=== PATIENT | female | born 1940 | race Caucasian/White ===

== ENCOUNTER 2019-05-22 10:39 | Observation (INO) ==
[2019-05-22 11:28] LABS: Basophils # 0.1 K/mcL (0.0-0.2); Basophils % 0.4 %; Eosinophils # 0.3 K/mcL (0.0-0.6); Eosinophils % 1.2 %; Hematocrit 30.2 % (35.3-44.9); Hemoglobin 9.1 g/dL (11.5-15.4); Immature Granulocytes % 1.7 % (0-4); Lymphocytes # 1.3 K/mcL (0.6-4.6); Lymphocytes % 5.8 %; Mean Corpuscular HGB Conc 30.1 g/dL (31.6-35.5); Mean Corpuscular Hemoglobin 25.9 pg (28.0-33.3); Mean Corpuscular Volume 85.8 fL (83.0-100.0); Mean Platelet Volume 9.1 fL (9.4-12.4); Monocytes # 1.9 K/mcL (0.0-1.3); Monocytes % 8.2 %; Platelet Count 548 K/mcL (140-400); Red Blood Count 3.52 M/mcL (3.82-4.97); Red Cell Distribution Width 20.1 % (11.5-14.5); Segmented Neutrophils % 82.7 %; White Blood Count 22.9 K/mcL (4.3-11.1)
[2019-05-22] MEDS ORDERED: Isovue-370 500 ML BOTTLE IVP ONE ×2 (11:31→16:52)
[2019-05-22 11:44] LABS: BUN/Creatinine Ratio 16 (6-26); Blood Urea Nitrogen 11 mg/dL (8-23); Calcium 9.9 mg/dL (8.6-10.3); Carbon Dioxide 25 mEq/L (23-29); Chloride 96 mEq/L (98-107); Glucose 256 mg/dL (70-105); Osmolality,Calculated 276 (280-300); Potassium 4.1 mEq/L (3.5-5.1); Sodium 129 mEq/L (136-145); eGFR For African Americans > 60 (> 60); eGFR For Non-African Americans > 60 (> 60)
[2019-05-22 11:50] LABS: Troponin I 0.29 ng/mL (< 0.04)
--- NOTE | 2019-05-22 11:51 | Emergency Department Note ---
Disposition Clinical Impression: Hypoxia, Lung mass Community acquired pneumonia Qualifiers: Laterality: unspecified laterality Qualified Code(s): J18.9 - Pneumonia, un specified organism Disposition: Admitted As Inpatient Condition: Fair Referrals: Ashutosh Burton DO [Primary Care Provider] - Forms: ED Satisfaction Letter Time of Disposition: 14:43 General Adult HPI - General Chief complaint: ED Shortness of Breath/Dyspnea Stated complaint: R/O PE Time Seen by Provider: 05/22/19 11:00 Source: patient, family Mode of arrival: private vehicle Limitations: no limitations Nursing Notes Reviewed: Yes Vital Signs Reviewed: Yes - History of Present Illness HPI Narrative: 79-year-old female with a past medical history of breast cancer treated with radiation and lumpectomy over 20 years ago with subsequent double mastectomy earlier this year. Patient was seen at the cancer Center this morning and they were concerned for a blood clot in her lungs so they sent her here for further evaluation. Patient states that she is short of breath right now and has been that way for the last 3 weeks. Patient at the bedside reports that patient has been more wheezy when she coughs over the last several days. She denies fevers or chills. She denies sputum with her cough. She states that she is short of breath with exertion. Pain Scale: 0 - Related Data Home Medications Medication Instructions Recorded Confirmed Calcium Carbonate [Tums] 1,000 mg PO QID PRN 05/16/15 03/20/19 Cholecalciferol (Vitamin D3) 200 unit PO DAILY 05/16/15 03/20/19 [Vitamin D] Aspirin Enteric Coated [Aspirin EC] 81 mg PO DAILY 02/19/17 03/20/19 Amlodipine Besylate 5 mg PO QAM 01/27/19 03/20/19 Ferrous Sulfate [Iron] 325 mg PO DAILY 02/24/19 03/20/19 Previous Rx's Medication Instructions Recorded Ascorbate Calcium [Vitamin C] 1 tab PO DAILY #30 tablet 07/08/18 Allergies Allergy/AdvReac Type Severity Reaction Status Date / Time No Known Allergies Allergy Verified 05/22/19 10:41 Review of Systems: In addition to that documented in the HPI above, the additional ROS was obtained: Constitutional: Denies fevers or chills Eyes: Denies vision changes ENMT: Denies sore throat CV: Denies chest pain Resp: Reports exertional SOB GI: Denies vomiting or diarrhea : Denies painful urination MSK: Denies recent trauma Skin: Denies new rashes Neuro: Denies new numbness or tingling or weakness Past Medical History - Past Medical History Attestation: Yes The following information was validated with the patient. Medical history: Reports: non-contributory, cancer, coronary artery disease, hyperlipidemia, hypertension, osteoporosis, other Surgical history: Reports: angioplasty/stent, breast surgery, other Psychiatric history: Reports: no psych history - Social History Smoking Status: Former smoker Smokeless Tobacco Status: No Alcohol use: Reports: occasionally Drug use: Reports: none Physical Exam General: A&O x 3. No acute distress. Well developed, well nourished. Head: atraumatic, normocephalic. ENT: No conjunctival injection, no scleral icterus. PERRLA. EOMI. Oropharynx non- erythematous. mucous membranes moist. Neuro: No focal deficits, no speech deficit, no facial droop, mentating well. Pulm: Mild, inconsistent expiratory wheeze noted diffusely that partially clears with coughing. Decreased lung sounds on RLL. Cardio: RRR no m/r/g. Chest not tender to palpation. Abd: Soft, non-distended. Normoactive bowel sounds. Non-tender to palpation. No guarding. Non rigid. Extremities: Radial pulses 2+ gilberto, dorsalis pedis/posterior tibialis 2+ gilberto. No LE edema. No cyanosis, clubbing. Skin: warm, dry, intact. No rashes. Psych: Appropriate mood and affect. Answers questions appropriately. Cooperative with exam. - General Limitations: no limitations General appearance: alert, in no apparent distress Course - Consultations Consultation #1: Troponin 0.29 critical lab value called from lab Time: 11:50 Vital Signs Temperature 98.5 F 05/22/19 10:41 Pulse Rate 95 05/22/19 10:41 Respiratory Rate 22 05/22/19 10:41 Blood Pressure 108/73 05/22/19 10:41 O2 Sat by Pulse Oximetry 98 05/22/19 10:41 Temperature 98.2 F 05/22/19 13:31 Pulse Rate 87 05/22/19 13:31 Respiratory Rate 18 05/22/19 13:31 Blood Pressure 122/59 05/22/19 13:31 O2 Sat by Pulse Oximetry 99 05/22/19 11:30 Oxygen Delivery Oxygen Delivery Room Air Medical Decision Making - MDM Narrative Medical decision making narrative: 79-year-old female with past medical history of breast cancer treated with a combination of radiation and lumpectomy 20 years ago, as well as mastectomy bilateral earlier this year. Patient was seen at her oncologist this morning who sent her over here for concern of PE. We will obtain CTA. We will also obtain basic laboratory evaluation. Disposition pending, suspect admission. 1444: Pts CTA did not demonstration pulmonary embolus, however, it did demonstrate significant lung mass in her Right lung, left lung, and adrenal gland concerning for metastatic disease. Pt was informed of the concern for cancer, although assured that this cannot be diagnosed without a biopsy. Pt was admitted to hospitalist, Dr. Capellan, who agreed to accept the patient to his service. Iain Ley NP from Oncology was consulted who states that Dr. Asencio will see the patient in the AM. Results of the workup including any imaging and/or labwork was shared with the patient at bedside. Patient was given an opportunity to ask questions at bedside and all of their concerns were addressed. Patient verbalized understanding and agreement with plan of care. Pt remained stable while in the department. - Medical Records Medical records reviewed: Yes I reviewed the patient's medical records. - Lab Data Lab results reviewed: Yes I reviewed the patient's lab results. Result diagrams: 05/22/19 11:08 05/22/19 11:08 Lab Results 05/22/19 05/22/19 05/22/19 Range/Units 11:08 11:08 11:08 WBC 22.9 H (4.3-11.1) K/mcL RBC 3.52 L (3.82-4.97) M/mcL Hgb 9.1 L (11.5-15.4) g/dL Hct 30.2 L (35.3-44.9) % MCV 85.8 (83.0-100.0) fL MCH 25.9 L (28.0-33.3) pg MCHC 30.1 L (31.6-35.5) g/dL RDW 20.1 H (11.5-14.5) % Plt Count 548 H (140-400) K/mcL MPV 9.1 L (9.4-12.4) fL Immature Gran % 1.7 (0-4) % Seg Neutrophils % 82.7 % Lymphocytes % 5.8 % Monocytes % 8.2 % Eosinophils % 1.2 % Basophils % 0.4 % Neutrophils # 19.0 H (1.6-8.9) K/mcL Lymphocytes # 1.3 (0.6-4.6) K/mcL Monocytes # 1.9 H (0.0-1.3) K/mcL Eosinophils # 0.3 (0.0-0.6) K/mcL Basophils # 0.1 (0.0-0.2) K/mcL Sodium 129 L (136-145) mEq/L Potassium 4.1 (3.5-5.1) mEq/L Chloride 96 L (98-107) mEq/L Carbon Dioxide 25 (23-29) mEq/L BUN 11 (8-23) mg/dL Creatinine 0.70 (0.60-1.20) mg/dL Est GFR ( Amer) > 60 (> 60) Est GFR (Non-Af Amer) > 60 (> 60) BUN/Creatinine Ratio 16 (6-26) Glucose 256 H (70-105) mg/dL Calculated Osmolality 276 L (280-300) Lactic Acid (0.5-2.2) mmol/L Calcium 9.9 (8.6-10.3) mg/dL Phosphorus (2.7-4.5) mg/dL Magnesium (1.6-2.6) mg/dL Total Bilirubin (0.3-1.0) mg/dL Direct Bilirubin (0.0-0.2) mg/dL Indirect Bilirubin (0.0-1.2) mg/dL AST (13-39) Units/L ALT (7-52) Units/L Alkaline Phosphatase (34-104) Units/L Troponin I 0.29 H* (< 0.04) ng/mL B-Natriuretic Peptide 110 H (Less than 100) pg/mL Serum Total Protein (6.4-8.9) g/dL Albumin (3.5-5.7) g/dL Globulin (2.4-3.5) g/dL Albumin/Globulin Ratio (1.1-2.2) Ur Specimen Adequacy Urine Color (Yellow) Urine Clarity (Clear) Urine pH (5.0-8.0) pH Units Ur Specific [place] (1.010-1.025) Urine Protein (Neg-Trace) mg/dL Urine Glucose (UA) (Normal) mg/dL Urine Ketones (Negative) mg/dL Urine Blood (Negative) Urine Nitrite (Negative) Urine Bilirubin (Negative) Urine Urobilinogen (Normal) mg/dL Ur Leukocyte Esterase (Negative) Urine Microscopic RBC (0-3) per hpf Urine Microscopic WBC (0-3) per hpf Ur Squamous Epith Cells (None-Few) per lpf Calcium Oxalate Crystal Urine Bacteria (None-Few) per hpf Hyaline Casts (None-Few) per lpf Ur Culture Indicated? (NO) 05/22/19 05/22/19 05/22/19 Range/Units 12:00 12:02 12:02 WBC (4.3-11.1) K/mcL RBC (3.82-4.97) M/mcL Hgb (11.5-15.4) g/dL Hct (35.3-44.9) % MCV (83.0-100.0) fL MCH (28.0-33.3) pg MCHC (31.6-35.5) g/dL RDW (11.5-14.5) % Plt Count (140-400) K/mcL MPV (9.4-12.4) fL Immature Gran % (0-4) % Seg Neutrophils % % Lymphocytes % % Monocytes % % Eosinophils % % Basophils % % Neutrophils # (1.6-8.9) K/mcL Lymphocytes # (0.6-4.6) K/mcL Monocytes # (0.0-1.3) K/mcL Eosinophils # (0.0-0.6) K/mcL Basophils # (0.0-0.2) K/mcL Sodium (136-145) mEq/L Potassium (3.5-5.1) mEq/L Chloride (98-107) mEq/L Carbon Dioxide (23-29) mEq/L BUN (8-23) mg/dL Creatinine (0.60-1.20) mg/dL Est GFR ( Amer) (> 60) Est GFR (Non-Af Amer) (> 60) BUN/Creatinine Ratio (6-26) Glucose (70-105) mg/dL Calculated Osmolality (280-300) Lactic Acid 1.5 (0.5-2.2) mmol/L Calcium (8.6-10.3) mg/dL Phosphorus 2.7 (2.7-4.5) mg/dL Magnesium 1.8 (1.6-2.6) mg/dL Total Bilirubin 0.3 (0.3-1.0) mg/dL Direct Bilirubin 0.2 (0.0-0.2) mg/dL Indirect Bilirubin 0.1 (0.0-1.2) mg/dL AST 38 (13-39) Units/L ALT 58 H (7-52) Units/L Alkaline Phosphatase 140 H (34-104) Units/L Troponin I (< 0.04) ng/mL B-Natriuretic Peptide (Less than 100) pg/mL Serum Total Protein 7.2 (6.4-8.9) g/dL Albumin 2.9 L (3.5-5.7) g/dL Globulin 4.3 H (2.4-3.5) g/dL Albumin/Globulin Ratio 0.7 L (1.1-2.2) Ur Specimen Adequacy See below A Urine Color Yellow (Yellow) Urine Clarity Slightly Hazy (Clear) Urine pH 5.0 (5.0-8.0) pH Units Ur Specific [place] 1.017 (1.010-1.025) Urine Protein Negative (Neg-Trace) mg/dL Urine Glucose (UA) Normal (Normal) mg/dL Urine Ketones Negative (Negative) mg/dL Urine Blood Negative (Negative) Urine Nitrite Negative (Negative) Urine Bilirubin Negative (Negative) Urine Urobilinogen Normal (Normal) mg/dL Ur Leukocyte Esterase Moderate H (Negative) Urine Microscopic RBC 5-15 H (0-3) per hpf Urine Microscopic WBC 15-30 H (0-3) per hpf Ur Squamous Epith Cells Many H (None-Few) per lpf Calcium Oxalate Crystal Present Urine Bacteria None Seen (None-Few) per hpf Hyaline Casts Few (None-Few) per lpf Ur Culture Indicated? YES A (NO) - Radiology Data Radiology results reviewed: Yes I reviewed the patient's radiology results. Chest X-Ray 05/22/19 10:44 IMPRESSION: Multiple left lung pulmonary masses. Right mid and lower lung volume loss plus or minus pleural fluid. Recommend CT imaging with IV contrast. D/ / 05/22/2019 11:20:35 Leland Hardy MD / ellis Interpreting Provider: Leland Hardy MD Chest CTA 05/22/19 11:31 IMPRESSION: 1. No discrete pulmonary embolism. 2. Dominant right lower lobe mass with consolidation and infiltration into the right hilum and bronchi to the right lower lobe and right middle lobe presumably reflecting primary bronchogenic carcinoma. 3. 2 mass lesions in the left lung as described may reflect metastasis or synchronous lesions. 4. Right adrenal mass almost certainly reflects metastatic disease. 5. Small volume right pleural effusion is likely malignant. 6. Hiatal hernia. D/ / Jarrod Shepherd / Jarrod Shepherd Interpreting Provider: Jarrod Shepherd - EKG Data EKG #1 EKG attestation: Yes I reviewed and interpreted this EKG. EKG results narrative: Heart rate 87, rhythm sinus, axis normal. Intervals within normal limits. Minimal ST elevation noted in leads 2, 3, aVF, V3, V5, V6. These are new changes when compared with previous EKG dated 01/27/2017.
[2019-05-22] MEDS ORDERED: Azithromycin 500 MG in 0.9 % Sodium Chloride 250 ML IVPB ONE (11:52)
[2019-05-22] MEDS ORDERED: cefTRIAXone 1,000 MG in Water for inj. (sterile) 10 ML IVP ONE (11:52)
[2019-05-22 12:20] LABS: Bilirubin,Urine Negative (Negative); Blood,Urine Negative (Negative); Color,Urine Yellow (Yellow); Glucose,Urine (UA) Normal (Normal); Ketones,Urine Negative (Negative); Leukocyte Esterase,Urine Moderate (Negative); Nitrite,Urine Negative (Negative); Protein,Urine Negative (Neg-Trace); Specific Gravity,Urine 1.017 (1.010-1.025); Urobilinogen,Urine Normal (Normal)
[2019-05-22 12:22] LABS: Bacteria,Urine None Seen per hpf (None-Few); Squamous Epithelial Cell,Urine Many per lpf (None-Few); WBC,Urine 15-30 per hpf (0-3)
[2019-05-22 12:26] LABS: Clarity,Urine Slightly Hazy (Clear)
[2019-05-22 12:27] LABS: Calcium Oxalate Crystals,Urine Present
[2019-05-22 12:29] LABS: Hyaline Casts,Urine Few per lpf (None-Few)
[2019-05-22 12:34] LABS: Albumin 2.9 g/dL (3.5-5.7); Albumin/Globulin Ratio 0.7 (1.1-2.2); Bilirubin,Direct 0.2 mg/dL (0.0-0.2); Bilirubin,Indirect 0.1 mg/dL (0.0-1.2); Bilirubin,Total 0.3 mg/dL (0.3-1.0); Globulin 4.3 g/dL (2.4-3.5); Magnesium 1.8 mg/dL (1.6-2.6); Phosphorous 2.7 mg/dL (2.7-4.5); Total Protein 7.2 g/dL (6.4-8.9)
--- NOTE | 2019-05-22 12:46 | Emergency Department Note ---
Disposition Clinical Impression: Lung mass Disposition: Admitted As Inpatient Condition: Fair Referrals: Ashutosh Burton DO [Primary Care Provider] - Forms: ED Satisfaction Letter Time of Disposition: 14:44 General Adult HPI - General Chief complaint: ED Shortness of Breath/Dyspnea Stated complaint: R/O PE Time Seen by Provider: 05/22/19 11:00 Source: patient, family Limitations: no limitations Nursing Notes Reviewed: Yes Vital Signs Reviewed: Yes - History of Present Illness Pain Scale: 0 - Related Data Home Medications Medication Instructions Recorded Confirmed Calcium Carbonate [Tums] 1,000 mg PO QID PRN 05/16/15 05/22/19 Cholecalciferol (Vitamin D3) 200 unit PO DAILY 05/16/15 05/22/19 [Vitamin D] Aspirin Enteric Coated [Aspirin EC] 81 mg PO DAILY 02/19/17 05/22/19 Amlodipine Besylate 5 mg PO QAM 01/27/19 05/22/19 Ferrous Sulfate [Iron] 325 mg PO DAILY 02/24/19 05/22/19 Previous Rx's Medication Instructions Recorded Ascorbate Calcium [Vitamin C] 1 tab PO DAILY #30 tablet 07/08/18 Allergies Allergy/AdvReac Type Severity Reaction Status Date / Time No Known Allergies Allergy Verified 05/22/19 10:41 Past Medical History - Past Medical History Medical history: Reports: non-contributory, cancer, coronary artery disease, hyperlipidemia, hypertension, osteoporosis, other Surgical history: Reports: angioplasty/stent, breast surgery, other Psychiatric history: Reports: no psych history - Social History Smoking Status: Former smoker Smokeless Tobacco Status: No Alcohol use: Reports: occasionally Drug use: Reports: none Physical Exam - General Limitations: no limitations General appearance: alert, in no apparent distress Course Vital Signs Temperature 98.5 F 05/22/19 10:41 Pulse Rate 95 05/22/19 10:41 Respiratory Rate 22 05/22/19 10:41 Blood Pressure 108/73 05/22/19 10:41 O2 Sat by Pulse Oximetry 98 05/22/19 10:41 Temperature 98.2 F 05/22/19 13:31 Pulse Rate 87 05/22/19 13:31 Respiratory Rate 18 05/22/19 13:31 Blood Pressure 122/59 05/22/19 13:31 O2 Sat by Pulse Oximetry 99 05/22/19 11:30 Oxygen Delivery Oxygen Delivery Room Air Medical Decision Making - Lab Data Result diagrams: 05/22/19 11:08 05/22/19 11:08 Lab Results 05/22/19 05/22/19 05/22/19 Range/Units 11:08 11:08 11:08 WBC 22.9 H (4.3-11.1) K/mcL RBC 3.52 L (3.82-4.97) M/mcL Hgb 9.1 L (11.5-15.4) g/dL Hct 30.2 L (35.3-44.9) % MCV 85.8 (83.0-100.0) fL MCH 25.9 L (28.0-33.3) pg MCHC 30.1 L (31.6-35.5) g/dL RDW 20.1 H (11.5-14.5) % Plt Count 548 H (140-400) K/mcL MPV 9.1 L (9.4-12.4) fL Immature Gran % 1.7 (0-4) % Seg Neutrophils % 82.7 % Lymphocytes % 5.8 % Monocytes % 8.2 % Eosinophils % 1.2 % Basophils % 0.4 % Neutrophils # 19.0 H (1.6-8.9) K/mcL Lymphocytes # 1.3 (0.6-4.6) K/mcL Monocytes # 1.9 H (0.0-1.3) K/mcL Eosinophils # 0.3 (0.0-0.6) K/mcL Basophils # 0.1 (0.0-0.2) K/mcL Sodium 129 L (136-145) mEq/L Potassium 4.1 (3.5-5.1) mEq/L Chloride 96 L (98-107) mEq/L Carbon Dioxide 25 (23-29) mEq/L BUN 11 (8-23) mg/dL Creatinine 0.70 (0.60-1.20) mg/dL Est GFR ( Amer) > 60 (> 60) Est GFR (Non-Af Amer) > 60 (> 60) BUN/Creatinine Ratio 16 (6-26) Glucose 256 H (70-105) mg/dL Calculated Osmolality 276 L (280-300) Lactic Acid (0.5-2.2) mmol/L Calcium 9.9 (8.6-10.3) mg/dL Phosphorus (2.7-4.5) mg/dL Magnesium (1.6-2.6) mg/dL Total Bilirubin (0.3-1.0) mg/dL Direct Bilirubin (0.0-0.2) mg/dL Indirect Bilirubin (0.0-1.2) mg/dL AST (13-39) Units/L ALT (7-52) Units/L Alkaline Phosphatase (34-104) Units/L Troponin I 0.29 H* (< 0.04) ng/mL B-Natriuretic Peptide 110 H (Less than 100) pg/mL Serum Total Protein (6.4-8.9) g/dL Albumin (3.5-5.7) g/dL Globulin (2.4-3.5) g/dL Albumin/Globulin Ratio (1.1-2.2) Ur Specimen Adequacy Urine Color (Yellow) Urine Clarity (Clear) Urine pH (5.0-8.0) pH Units Ur Specific [place] (1.010-1.025) Urine Protein (Neg-Trace) mg/dL Urine Glucose (UA) (Normal) mg/dL Urine Ketones (Negative) mg/dL Urine Blood (Negative) Urine Nitrite (Negative) Urine Bilirubin (Negative) Urine Urobilinogen (Normal) mg/dL Ur Leukocyte Esterase (Negative) Urine Microscopic RBC (0-3) per hpf Urine Microscopic WBC (0-3) per hpf Ur Squamous Epith Cells (None-Few) per lpf Calcium Oxalate Crystal Urine Bacteria (None-Few) per hpf Hyaline Casts (None-Few) per lpf Ur Culture Indicated? (NO) 05/22/19 05/22/19 05/22/19 Range/Units 12:00 12:02 12:02 WBC (4.3-11.1) K/mcL RBC (3.82-4.97) M/mcL Hgb (11.5-15.4) g/dL Hct (35.3-44.9) % MCV (83.0-100.0) fL MCH (28.0-33.3) pg MCHC (31.6-35.5) g/dL RDW (11.5-14.5) % Plt Count (140-400) K/mcL MPV (9.4-12.4) fL Immature Gran % (0-4) % Seg Neutrophils % % Lymphocytes % % Monocytes % % Eosinophils % % Basophils % % Neutrophils # (1.6-8.9) K/mcL Lymphocytes # (0.6-4.6) K/mcL Monocytes # (0.0-1.3) K/mcL Eosinophils # (0.0-0.6) K/mcL Basophils # (0.0-0.2) K/mcL Sodium (136-145) mEq/L Potassium (3.5-5.1) mEq/L Chloride (98-107) mEq/L Carbon Dioxide (23-29) mEq/L BUN (8-23) mg/dL Creatinine (0.60-1.20) mg/dL Est GFR ( Amer) (> 60) Est GFR (Non-Af Amer) (> 60) BUN/Creatinine Ratio (6-26) Glucose (70-105) mg/dL Calculated Osmolality (280-300) Lactic Acid 1.5 (0.5-2.2) mmol/L Calcium (8.6-10.3) mg/dL Phosphorus 2.7 (2.7-4.5) mg/dL Magnesium 1.8 (1.6-2.6) mg/dL Total Bilirubin 0.3 (0.3-1.0) mg/dL Direct Bilirubin 0.2 (0.0-0.2) mg/dL Indirect Bilirubin 0.1 (0.0-1.2) mg/dL AST 38 (13-39) Units/L ALT 58 H (7-52) Units/L Alkaline Phosphatase 140 H (34-104) Units/L Troponin I (< 0.04) ng/mL B-Natriuretic Peptide (Less than 100) pg/mL Serum Total Protein 7.2 (6.4-8.9) g/dL Albumin 2.9 L (3.5-5.7) g/dL Globulin 4.3 H (2.4-3.5) g/dL Albumin/Globulin Ratio 0.7 L (1.1-2.2) Ur Specimen Adequacy See below A Urine Color Yellow (Yellow) Urine Clarity Slightly Hazy (Clear) Urine pH 5.0 (5.0-8.0) pH Units Ur Specific [place] 1.017 (1.010-1.025) Urine Protein Negative (Neg-Trace) mg/dL Urine Glucose (UA) Normal (Normal) mg/dL Urine Ketones Negative (Negative) mg/dL Urine Blood Negative (Negative) Urine Nitrite Negative (Negative) Urine Bilirubin Negative (Negative) Urine Urobilinogen Normal (Normal) mg/dL Ur Leukocyte Esterase Moderate H (Negative) Urine Microscopic RBC 5-15 H (0-3) per hpf Urine Microscopic WBC 15-30 H (0-3) per hpf Ur Squamous Epith Cells Many H (None-Few) per lpf Calcium Oxalate Crystal Present Urine Bacteria None Seen (None-Few) per hpf Hyaline Casts Few (None-Few) per lpf Ur Culture Indicated? YES A (NO) Attestation Statement - Attestation Attestation: I examined this patient and my medical decision-making was reviewed with the Resident Physician. I agree with the documented findings, disposition and treatment plan as described except to the extent set forth below. Patient persists to the ED with shortness of breath. Onset a couple of months ago but worse over the past few days. Patient saw her oncologist this morning. She had a submersible pilot with Iain Ley. They did a chest x-ray told her to come to the ED because they were concerned about a blood clot. Patient has a history of breast cancer that she thinks is in remission. On examination she is pleasant sitting up in bed in no distress. Lungs are clear. Plan. Chest x-ray re viewed. There is concern for metastatic disease which the patient is not aware that she has. Also concern for pneumonia. Septic workup. CTA chest. EKG was reviewed with the resident. Repeated 1. CT scan reviewed. Patient is aware of the concern for cancer in her lung. Concern for metastasis as well. Patient was discussed with on-call oncology Iain Ley. Dr. Hitchcock will see her over the weekend. Admitted to medicine. Chest X-Ray 05/22/19 10:44 IMPRESSION: Multiple left lung pulmonary masses. Right mid and lower lung volume loss plus or minus pleural fluid. Recommend CT imaging with IV contrast. D/ / 05/22/2019 11:20:35 Leland Hardy MD / ellis Interpreting Provider: Leland Hardy MD Chest CTA 05/22/19 11:31 IMPRESSION: 1. No discrete pulmonary embolism. 2. Dominant right lower lobe mass with consolidation and infiltration into the right hilum and bronchi to the right lower lobe and right middle lobe presumably reflecting primary bronchogenic carcinoma. 3. 2 mass lesions in the left lung as described may reflect metastasis or synchronous lesions. 4. Right adrenal mass almost certainly reflects metastatic disease. 5. Small volume right pleural effusion is likely malignant. 6. Hiatal hernia. D/ / Jarrod Shepherd / Jarrod Shepherd Interpreting Provider: Jarrod Shepherd
[2019-05-22] MEDS ORDERED: Naloxone 0.4 MG/ML INJ IVP PRN (14:54)
[2019-05-22] MEDS ORDERED: Ondansetron 4 MG/2 ML VIAL IVP PRN ×2 (14:54→18:52)
--- NOTE | 2019-05-22 15:41 | Internal Med History&Physical ---
Date of Encounter: 05/22/19 Time of Encounter: 15:00 Internal Medicine - H&P: HPI Chief complaint: SOB Admitted From: Home History of present illness: Ms. Guillermo is a 79 year old female with history of breast cancer, bladder cancer, CAD s/p PCI, who presented from cancer center due to SOB. Patient states that she was gradually getting more SOB for the last week or so. She had always been coughing on and off for the last 2 years and did not really notice any worsening cough. No sputum production or hemoptysis. Denies any chest pain, palpitation, nausea/vomiting, lightheadedness, orthopnea, PND, or leg swelling. No GI/ symptoms. In the ED, she was afebrile and hemodynamically stable with 98% on room air. However, she was tachypneic and became easily short of breath after a short sentence. Labwork showed leukocytosis of 22, troponin 0.29, sodium 129, and normal lactic acid. EKG showed normal sinus rhythm without STT changes con cerning for ischemia. CTPA was done to rule out PE and instead of showing any evidence of pulmonary embolism, there was a dominant right lower lobe mass with consolidation and infiltration into the right hilum and bronchi to R LL and RML. There were 2 additional mass lesions in the left lung as well as right adrenal mass. She was started on IV Rocephin/azithromycin and admitted for further negin wells. Past Med Surg Social Fam HX - Past Medical History Medical history: cancer, coronary artery disease, hypertension, osteoporosis, other Additional medical history: breast cancer, right, 8 o'clock. terine polyps. hx of breast cancer. hx of bladder cancer. recurrent left breast cancer. heart attack. anemia Psychiatric history: no psych history - Past Surgical History Surgical History: angioplasty/stent, breast surgery, other Additional surgical history: tubal ligation. left mastectomy. left breast lum pectomy. transurethral resection of bladder tumor. multiple cystoscopies in office and OR. hysteroscopy, D&C, excision of endometrial polyp. cystoscopy. heart cath and stent placement - Social History Smoking Status: Former smoker Smokeless Tobacco Status: No Alcohol use: occasionally Drug use: none - Additional Family History Additional family history: Unknown as she was adopted Internal Medicine - H&P: Meds Calcium Carbonate [Tums] 1,000 mg PO QID PRN 05/16/15 [History] Cholecalciferol (Vitamin D3) [Vitamin D] 200 unit PO DAILY 05/16/15 [History] Aspirin Enteric Coated [Aspirin EC] 81 mg PO DAILY 02/19/17 [History] Ascorbate Calcium [Vitamin C] 1 tab PO DAILY #30 tablet 07/08/18 [Rx] Amlodipine Besylate 5 mg PO QAM 01/27/19 [History] Ferrous Sulfate [Iron] 325 mg PO DAILY 02/24/19 [History] Allergy/AdvReac Type Severity Reaction Status Date / Time No Known Allergies Allergy Verified 05/22/19 10:41 All Systems PM: A 10-system review of systems was performed and is negative for pertinent findings except as documented above in the HPI. - Constitutional Vitals: Temp Pulse Resp BP Pulse Ox 98.2 F 87 18 122/59 99 05/22/19 13:31 05/22/19 13:31 05/22/19 13:31 05/22/19 13:31 05/22/19 11:30 Exam: General: Alert and oriented, visibly tachypneic HEENT:EOMI, pupils equal, round and reactive. Cardiovascular:Normal S1 & S2, No JVD. Pulse regular. Lungs: Diminished on the right, mostly clear to auscultation on the right. No wheezes Abdomen:Soft, non-tender, no rigidity. Extremities:No deformity or swelling Neurological:Normal cognition and motor skills. Non-focal Skin:Normal color, no rash, no lesions. Pulses:Carotid and radial pulses normal +2. Rest of the physical exam is non contributory Internal Med - H&P Results - Labs CBC & Chem 7: 05/22/19 11:08 05/22/19 11:08 Labs: Short CBC 05/22/19 Range/Units 11:08 WBC 22.9 H (4.3-11.1) K/mcL Hgb 9.1 L (11.5-15.4) g/dL Hct 30.2 L (35.3-44.9) % Plt Count 548 H (140-400) K/mcL Neutrophils # 19.0 H (1.6-8.9) K/mcL BMP 05/22/19 11:08 Sodium 129 L Potassium 4.1 Chloride 96 L Carbon Dioxide 25 BUN 11 Creatinine 0.70 Glucose 256 H Calcium 9.9 Cardiac Enzymes 08/30/19 Range/Units 11:08 Troponin I 0.29 H* (< 0.04) ng/mL Liver Function 05/22/19 Range/Units 12:02 Total Bilirubin 0.3 (0.3-1.0) mg/dL Direct Bilirubin 0.2 (0.0-0.2) mg/dL AST 38 (13-39) Units/L ALT 58 H (7-52) Units/L Alkaline Phosphatase 140 H (34-104) Units/L Albumin 2.9 L (3.5-5.7) g/dL Urine 05/22/19 Range/Units 12:00 Urine Color Yellow (Yellow) Urine Clarity Slightly Hazy (Clear) Urine pH 5.0 (5.0-8.0) pH Units Ur Specific [place] 1.017 (1.010-1.025) Urine Protein Negative (Neg-Trace) mg/dL Urine Glucose (UA) Normal (Normal) mg/dL - Impressions ITS Impressions Chest X-Ray 05/22/19 10:44 IMPRESSION: Multiple left lung pulmonary masses. Right mid and lower lung volume loss plus or minus pleural fluid. Recommend CT imaging with IV contrast. D/ / 05/22/2019 11:20:35 Leland Hardy MD / ellis Interpreting Provider: Leland Hardy MD Chest CTA 05/22/19 11:31 IMPRESSION: 1. No discrete pulmonary embolism. 2. Dominant right lower lobe mass with consolidation and infiltration into the right hilum and bronchi to the right lower lobe and right middle lobe presumably reflecting primary bronchogenic carcinoma. 3. 2 mass lesions in the left lung as described may reflect metastasis or synchronous lesions. 4. Right adrenal mass almost certainly reflects metastatic disease. 5. Small volume right pleural effusion is likely malignant. 6. Hiatal hernia. D/ / Jarrod Shepherd / Jarrod Shepherd Interpreting Provider: Jarrod Shepherd - Assessment and Plan (1) Lung mass Current Visit: Yes Status: Acute Assessment and plan: Was sent from cancer center due to dyspnea and was found to have large right lower lobe mass as well as 2 more mass lesions in the left lung. Patient has history of breast cancer requiring double mastectomy as well as bladder cancer that is currently in remission Remote history of light tobacco use, quit >35 years ago Oncology consulted in the ER Discussed with pulmonology, nothing by mouth after midnight for possible bronchoscopy. (2) Postobstructive pneumonia Current Visit: Yes Status: Acute Assessment and plan: no significant cough or sputum production reported but has leukocytosis of 22 CT not only showed dominant right lower lobe mass but also associated consolidation around it started on IV Zack/azithromycin, continue strep/legionella ag pulmonology consultation (3) Elevated troponin Current Visit: Yes Status: Acute Assessment and plan: Likely due to demand ischemia in the setting of respiratory distress EKG without ischemic changes telemetry, trend troponin resume home meds for CAD echocardiogram (4) History of breast cancer Current Visit: Yes Status: Acute (5) Goals of care, counseling/discussion Current Visit: Yes Status: Acute Assessment and plan: had lengthy discussion with the patient and her at bedside regarding goals of care -> DNR CCA DNI (6) DVT prophylaxis Current Visit: Yes Status: Acute Assessment and plan: Subcutaneous heparin - Time Spent With Patient Total time spent is greater than 50% in coordination of care (as documented) at patient's floor/unit and/or counseling patient: Greater than 35 minutes
[2019-05-22] MEDS ORDERED: Ipratropium/Albuterol Neb 3 ML IH PRN (15:49)
--- NOTE | 2019-05-22 16:51 | Oncology Inp Consult Note ---
<Festus Aparicio - Last Filed: 05/22/19 16:51> Date of Encounter: 05/22/19 - Data of Consult Primary Care Provider: Ashutosh Burton DO Medications and Allergies Calcium Carbonate [Tums] 1,000 mg PO QID PRN 05/16/15 [History] Cholecalciferol (Vitamin D3) [Vitamin D] 200 unit PO DAILY 05/16/15 [History] Aspirin Enteric Coated [Aspirin EC] 81 mg PO DAILY 02/19/17 [History] Ascorbate Calcium [Vitamin C] 1 tab PO DAILY #30 tablet 07/08/18 [Rx] Amlodipine Besylate 5 mg PO QAM 01/27/19 [History] Ferrous Sulfate [Iron] 325 mg PO DAILY 02/24/19 [History] Allergy/AdvReac Type Severity Reaction Status Date / Time No Known Allergies Allergy Verified 05/22/19 10:41 Consult Discharge Plan - Plan Referrals: Ashutosh Burton DO [Primary Care Provider] - Inpatient Charges Provider: Dr. David Aparicio Consult - Inpatient: [id number] - Attending Attestation I examined this patient and my medical decision-making was reviewed with the Advanced Practice Nurse. I agree with the documented findings, disposition and treatment plan as described except to the extent set forth below. -CT scans show disease progression, likely of a new primary. Will complete staging with a CT N/A/P w/contrast and MRI of the head w/ and w/o contrast. -Recommend CT guided biopsy of adrenal lesion -Will perform anemia w/u and will check MM labs. -Please add Solumedrol 40 mg IV q12h and taper accordingly to help with her SOB -Please also add morphine 1-2 mg q4h PRN pain Thank you for the consult. <Toni Ley Jr - Last Filed: 05/22/19 18:57> Date of Encounter: 05/22/19 Time of Encounter: 16:49 Assessment and Plan (1) Lung mass Status: Acute Assessment and plan: This is an 79 year old female with history of breast cancer and bladder cancer, and iron deficiency anemia. She was sent to [place] ER earlier today from [facility] for respiratory distress, malaise, wheezing, and pleuritic discomfort, tachypnea and tachycardia. Patient with 2-3 week history of progressive fatigue and dyspnea. She was given IV iron x 2 doses about 2 weeks ago. Based on hemolysis work up, she was given referrals to Dr Meneses due to elevated MAAME/[place], and, referral to Dr Duncan for scopes While the infusions helped her ferritn, iron and Hgb numbers, she did not feel better physically. Based on her outpatient clinical presentation today, there was concern that she had a PE, pulmonary infiltrate, effusion, or mass or acute coronary event/arrythmia. In the ER, the CTA chest showed, No discrete pulmonary embolism. Imaging did s how a dominant right lower lobe mass with consolidation and infiltration into the right hilum and bronchi to the right lower lobe and right middle lobe presumably reflecting primary bronchogenic carcinoma. Small volume right pleural effusion is likely malignant. She has 2 mass lesions in the left lung as described may reflect metastasis orsynchronous lesions. She has a right adrenal mass almost certainly reflects metastatic disease. Current Recommendations: 1, We spoke to patient and her at length. She does have a history of breast and bladder caner. We advised them that we need to do an extensive work up to see if this is another primary malignancy, versus metastatic disease from her known breast and bladder cancers. 2. We ordered CT soft tissues of the neck, and abdomen and pelvis. Also MRI brain ordered due to possibility of a lung cancer. 3. We recommend biopsy of the larger mass on the adrenal gland versus pulmonology opinion for bronchoscopy 4. Added labs for B12, iron, ferritin, retic count, myeloma work up (SPEP, light chains, immunoglobulins), LDH, haptoglobin due to her significant anemia 5. We will order solumedrol 40mg IV BID x 4 doses and morphine to help breathing/wheezing/pain. Also zofran for nausea, acetaminophen for pain 6. Agree for antibiotic coverage for CAP We will continue to follow along Dr Aparicio assessed patient with me today (2) History of breast cancer Status: Acute (3) History of bladder cancer Status: Acute (4) Right adrenal mass Status: Acute - Data of Consult Patient: known to practice within the last 3 years Consult date: 05/22/19 Primary Care Provider: Ashutosh Burton, DO - Consult Narrative Reason for consult: lung mass, adrenal mass History of present illness: History of present illness Fatigue.. Microcytic hypochromic anemia. She is taking oral iron. Denied blood in the urine. Mild shortness of breath with exertion. No headache. Appetite is okay Oncological history Right breast cancer. At 8 o'clock position 3.5 x 1.6 cm subcutaneous palpable mass. Mammogram and ultrasound in December 2018 showed3.3 x 1.6 x 2.4 cm, solid mass which demonstrates internal complex architecture . 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 Next spindle cell and epithelioid neoplasm with pleomorphic nuclei the background of necrosis. Brisk mitotic activity. ER/NH HER-2 negative. Ki-67 8 0% No fever chills no hematuria. No nausea vomiting. Mild anemia. Oncological history 1. 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 2. Left breast cancer, stage I. Modified radical mastectomy 09/08/2009. Right breast mammogram on January 2017 category 1 benign T1c N0 M0 grade 3, ER NH HER2 negative. Eight axillary lymph node negative. Declined chemotherapy. Not a candidate for hormone manipulation, in remission Superficial Bladder cancer Recurrent superficial bladder cancer. She had intravesical BCG weekly 6 few years ago which she completed without any problem. At recurrence of bladder cancer confirmed by biopsy August 2014. And also she had some recurrence by cystoscopy 03/09/2015 showed 4 small exophytic lesions along the posterior aspect or fulgurated. Subsequently had intravesical BCG for which she had severe spasms and some hematuria. She stopped after 5 weekly doses. Her symptoms improved on Cipro. Last cystoscopy by Dr. Yu on 12/26/2015 is negative other than mild cystitis. Next cystoscopy scheduled for June 2017 We will do urovysion testing today. Iron Deficiency Anemia: Patient treated with 2 IV iron infusions in April 2019 at [facility]. Additional work up included differential of autoimmune hemolysis due to MAAME Medical Problems: Acute RI with troponin around 0.18 on January 2017 she is transferred to [facility] where she had a cardiac catheter. But 100% blockage right circumflex followed by a drug-eluting stent. She is on aspirin 81 mg a day and Plavix 75 mg a day. She did have some left-sided chest pain which improved greatly after the stent Past Med Surg Social Fam HX - Past Medical History Medical history: cancer, coronary artery disease, hypertension, osteoporosis, other Additional medical history: breast cancer, right, 8 o'clock. terine polyps. hx of breast cancer. hx of bladder cancer. recurrent left breast cancer. heart attack. anemia Psychiatric history: no psych history - Past Surgical History Surgical History: angioplasty/stent, breast surgery, other Additional surgical history: tubal ligation. left mastectomy. left breast lumpectomy. transurethral resection of bladder tumor. multiple cystoscopies in office and OR. hysteroscopy, D&C, excision of endometrial polyp. cystoscopy. heart cath and stent placement - Social History Smoking Status: Former smoker Smokeless Tobacco Status: No Alcohol use: occasionally Drug use: none Respiratory: Present: cough, dyspnea, dyspnea on exertion, wheezing Oncology - Exam - Constitutional General appearance: cooperative, no acute distress - Head Head exam: Present: normal inspection, normocephalic - Eye Eye exam: Present: normal appearance, PERRL - ENT ENT exam: Present: mucous membranes moist - Neck Neck exam: Present: full ROM - Respiratory Respiratory exam: Present: CTAB - Cardiovascular Cardiovascular exam: Present: RRR - GI/Abdominal GI/Abdominal exam: Present: normal bowel sounds, soft - Extremities Exam Extremities exam: Present: full ROM, normal inspection - Neurological Exam Neurological exam: Present: oriented X3, no focal deficits - Psychiatric Psychiatric exam: Present: normal affect, normal mood - Skin Skin exam: Present: dry, intact, warm Oncology Inpatient Results Labs: Laboratory Last Values WBC 22.9 K/mcL (4.3-11.1) H 05/22/19 11:08 RBC 3.52 M/mcL (3.82-4.97) L 05/22/19 11:08 Hgb 9.1 g/dL (11.5-15.4) L 05/22/19 11:08 Hct 30.2 % (35.3-44.9) L 05/22/19 11:08 MCV 85.8 fL (83.0-100.0) 05/22/19 11:08 MCH 25.9 pg (28.0-33.3) L 05/22/19 11:08 MCHC 30.1 g/dL (31.6-35.5) L 05/22/19 11:08 RDW 20.1 % (11.5-14.5) H 05/22/19 11:08 Plt Count 548 K/mcL (140-400) H 05/22/19 11:08 MPV 9.1 fL (9.4-12.4) L 05/22/19 11:08 Immature Gran % 1.7 % (0-4) 05/22/19 11:08 Seg Neutrophils % 82.7 % 05/22/19 11:08 Lymphocytes % 5.8 % 05/22/19 11:08 Monocytes % 8.2 % 05/22/19 11:08 Eosinophils % 1.2 % 05/22/19 11:08 Basophils % 0.4 % 05/22/19 11:08 Neutrophils # 19.0 K/mcL (1.6-8.9) H 05/22/19 11:08 Lymphocytes # 1.3 K/mcL (0.6-4.6) 05/22/19 11:08 Monocytes # 1.9 K/mcL (0.0-1.3) H 05/22/19 11:08 Eosinophils # 0.3 K/mcL (0.0-0.6) 05/22/19 11:08 Basophils # 0.1 K/mcL (0.0-0.2) 05/22/19 11:08 Sodium 129 mEq/L (136-145) L 05/22/19 11:08 Potassium 4.1 mEq/L (3.5-5.1) 05/22/19 11:08 Chloride 96 mEq/L (98-107) L 05/22/19 11:08 Carbon Dioxide 25 mEq/L (23-29) 05/22/19 11:08 BUN 11 mg/dL (8-23) 05/22/19 11:08 Creatinine 0.70 mg/dL (0.60-1.20) 05/22/19 11:08 Est GFR ( Amer) > 60 (> 60) 05/22/19 11:08 Est GFR (Non-Af Amer) > 60 (> 60) 05/22/19 11:08 BUN/Creatinine Ratio 16 (6-26) 05/22/19 11:08 Glucose 256 mg/dL (70-105) H 05/22/19 11:08 Calculated Osmolality 276 (280-300) L 05/22/19 11:08 Lactic Acid 1.5 mmol/L (0.5-2.2) 05/22/19 12:02 Calcium 9.9 mg/dL (8.6-10.3) 05/22/19 11:08 Phosphorus 2.7 mg/dL (2.7-4.5) 05/22/19 12:02 Magnesium 1.8 mg/dL (1.6-2.6) 05/22/19 12:02 Total Bilirubin 0.3 mg/dL (0.3-1.0) 05/22/19 12:02 Direct Bilirubin 0.2 mg/dL (0.0-0.2) 05/22/19 12:02 Indirect Bilirubin 0.1 mg/dL (0.0-1.2) 05/22/19 12:02 AST 38 Units/L (13-39) 05/22/19 12:02 ALT 58 Units/L (7-52) H 05/22/19 12:02 Alkaline Phosphatase 140 Units/L (34-104) H 05/22/19 12:02 Troponin I 0.29 ng/mL (< 0.04) H* 05/22/19 11:08 B-Natriuretic Peptide 110 pg/mL (Less than 100) H 05/22/19 11:08 Serum Total Protein 7.2 g/dL (6.4-8.9) 05/22/19 12:02 Albumin 2.9 g/dL (3.5-5.7) L 05/22/19 12:02 Globulin 4.3 g/dL (2.4-3.5) H 05/22/19 12:02 Albumin/Globulin Ratio 0.7 (1.1-2.2) L 05/22/19 12:02 Ur Specimen Adequacy See below A 05/22/19 12:00 Urine Color Yellow (Yellow) 05/22/19 12:00 Urine Clarity Slightly Hazy (Clear) 05/22/19 12:00 Urine pH 5.0 pH Units (5.0-8.0) 05/22/19 12:00 Ur Specific [place] 1.017 (1.010-1.025) 05/22/19 12:00 Urine Protein Negative mg/dL (Neg-Trace) 05/22/19 12:00 Urine Glucose (UA) Normal mg/dL (Normal) 05/22/19 12:00 Urine Ketones Negative mg/dL (Negative) 05/22/19 12:00 Urine Blood Negative (Negative) 05/22/19 12:00 Urine Nitrite Negative (Negative) 05/22/19 12:00 Urine Bilirubin Negative (Negative) 05/22/19 12:00 Urine Urobilinogen Normal mg/dL (Normal) 05/22/19 12:00 Ur Leukocyte Esterase Moderate (Negative) H 05/22/19 12:00 Urine Microscopic RBC 5-15 per hpf (0-3) H 05/22/19 12:00 Urine Microscopic WBC 15-30 per hpf (0-3) H 05/22/19 12:00 Ur Squamous Epith Cells Many per lpf (None-Few) H 05/22/19 12:00 Calcium Oxalate Crystal Present 05/22/19 12:00 Urine Bacteria None Seen per hpf (None-Few) 05/22/19 12:00 Hyaline Casts Few per lpf (None-Few) 05/22/19 12:00 Ur Culture Indicated? YES (NO) A 05/22/19 12:00
[2019-05-22] MEDS ORDERED: Gadolinium Contrast Agent (WT Based) IV PRN (16:52)
[2019-05-22 17:58] LABS: Immature Reticulocyte % 11.4 % (11.0-38.0); Retculocyte # 0.07 M/mcL (0.05-0.10); Reticulocyte % 1.9 % (1.6-2.8)
[2019-05-22] MEDS ORDERED: Morphine Sulfate 2 MG/ML SYRINGE IVP PRN (18:53)
[2019-05-23 05:27] LABS: Basophils # 0.1 K/mcL (0.0-0.2); Basophils % 0.5 %; Eosinophils # 0.5 K/mcL (0.0-0.6); Eosinophils % 2.4 %; Hematocrit 28.8 % (35.3-44.9); Hemoglobin 8.8 g/dL (11.5-15.4); Lymphocytes # 1.4 K/mcL (0.6-4.6); Lymphocytes % 6.2 %; Mean Corpuscular HGB Conc 30.6 g/dL (31.6-35.5); Mean Corpuscular Hemoglobin 26.4 pg (28.0-33.3); Mean Corpuscular Volume 86.5 fL (83.0-100.0); Mean Platelet Volume 9.2 fL (9.4-12.4); Monocytes # 1.9 K/mcL (0.0-1.3); Monocytes % 8.9 %; Neutrophils # 17.6 K/mcL (1.6-8.9); Platelet Count 561 K/mcL (140-400); Red Blood Count 3.33 M/mcL (3.82-4.97); White Blood Count 21.9 K/mcL (4.3-11.1)
[2019-05-23 05:35] LABS: INR 1.4; Prothrombin Time 15.7 Seconds (9.4-12.1)
[2019-05-23 05:45] LABS: BUN/Creatinine Ratio 14 (6-26); Blood Urea Nitrogen 9 mg/dL (8-23); Calcium 10.1 mg/dL (8.6-10.3); Carbon Dioxide 26 mEq/L (23-29); Chloride 99 mEq/L (98-107); Chol/HDL Ratio 2.8 (0-4.9); Cholesterol 75 mg/dL (< 200); Glucose 116 mg/dL (70-105); HDL Cholesterol 27 mg/dL (40-59); LDL Cholesterol,Calculated 39 mg/dL (0-99); Magnesium 1.7 mg/dL (1.6-2.6); Osmolality,Calculated 278 (280-300); Sodium 134 mEq/L (136-145); Triglycerides 43 mg/dL (< 150); eGFR For African Americans > 60 (> 60); eGFR For Non-African Americans > 60 (> 60)
[2019-05-23 05:52] LABS: Estimated Average Glucose 126 mg/dl
[2019-05-23] MEDS ORDERED: MethylPREDNISolone 40 MG/ML VIAL IVP SCH (06:00)
--- NOTE | 2019-05-23 06:41 | Pulmonology Consult Note ---
Date of Encounter: 05/23/19 Time of Encounter: 06:41 Assessment and Plan (1) Lung mass Current Visit: Yes Status: Acute I reviewed the CT scan with the patient there is evidence of a large right lower lobe lung mass with compression of essentially the entire right lower lobe and there is also a 2 left lung masses noted which are much smaller. CT of the abdomen is also notable for adrenal and liver metastatic disease is also possible that based upon a brain MRI she may have a brain met. I reviewed the images with the patient and the tumor they are right lower lobe would be definitely amenable to bronchoscopy I actually doubt that there is airway involvement at this point and likely would need endobronchial ultrasound with fine-needle aspiration for definitive diagnosis given the high degree of necrotic tissue that sometimes this can be a challenging process. We will get this point I would favor one of 2 options bring the patient back for EBUS with our interventional environmental compliance officer the downside potentially doing fine-needle aspiration was endobronchial ultrasound of that large tumor is that it is all necrotic and remained at just getting necrotic debris as opposed to cells that could be used for diagnosis. CT-guided biopsy of any of the other metastatic lesions including the lung masses on the left may actually have a higher diagno stic yield even that in general terms are much less necrotic and easily accessible and I would favor scheduling CT-guided biopsy for the patient. (2) Postobstructive pneumonia Current Visit: Yes Status: Acute There is concern for postobstructive pneumonia with persistent leukocytosis clinically patient looks quite well she has had persistent leukocytosis for a month or so and this may be related to malignancy be reasonable to check a pro- calcitonin level and if this is normal. Likely de-escalate her stop antibiotics (3) History of breast cancer Current Visit: Yes Status: Acute Management per oncology (4) Elevated troponin Current Visit: Yes Status: Acute This is likely demand ischemia. Management per primary team I did discuss my opinion recommendations directly with the primary hospitalist Dr KOVACS Thank you very much for this consultation Do not hesitate to call me with any questions or concerns Levon Lew [phone] History of Present Illness Consult date: 05/23/19 Requesting physician: Dillan Kovacs Reason for consult: abnormal CXR/CT Chief complaint: Difficulty in Breathing History of present illness: Ms Guillermo is a very pleasant 79-year-old woman with past medical history of left breast cancer which was diagnosed in the late 80s initially treated with lumpectomy and then 5 years of tamoxifen. Subsequently she had another left breast cancer status post modified radical stacked to fl in 2008 she declined chemotherapy at that time and had been in remission. Unfortunately had recurrence in December of this year and underwent right breast mastectomy with sentinel node biopsy. She also has a history of superficial bladder cancer and underwent intravesicular BCG without complication. Unfortunately had recurrence in 2014 Tx with BCG at that time was interrupted by severe spasms and hematuria she been following with urology for that. She presented to her outpatient oncologist for routine follow-up yesterday noted to be severely dyspneic and hypoxic and was later triaged to the ED where a CT angiogram of the chest was performed noting for very large right-sided lung mass with complete obliteration of the left lower lobe. Pulmonary is consulted for further evaluation. Patient states that she is dyspneic but is not requiring any supplemental oxygen right now. She has some night sweats but denies any unintentional weight loss or hemoptysis. 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 Past Med Surg Social Fam HX - Past Medical History Medical history: cancer, coronary artery disease, hypertension, osteoporosis, other Additional medical history: breast cancer, right, 8 o'clock. terine polyps. hx of breast cancer. hx of bladder cancer. recurrent left breast cancer. heart attack. anemia Psychiatric history: no psych history - Past Surgical History Surgical History: angioplasty/stent, breast surgery, other Additional surgical history: tubal ligation. left mastectomy. left breast lumpectomy. transurethral resection of bladder tumor. multiple cystoscopies in office and OR. hysteroscopy, D&C, excision of endometrial polyp. cystoscopy. heart cath and stent placement - Social History Smoking Status: Former smoker Smokeless Tobacco Status: No Alcohol use: occasionally Drug use: none Medications and Allergies Calcium Carbonate [Tums] 1,000 mg PO QID PRN 05/16/15 [History] Cholecalciferol (Vitamin D3) [Vitamin D] 200 unit PO DAILY 05/16/15 [History] Aspirin Enteric Coated [Aspirin EC] 81 mg PO DAILY 02/19/17 [History] Ascorbate Calcium [Vitamin C] 1 tab PO DAILY #30 tablet 07/08/18 [Rx] Amlodipine Besylate 5 mg PO QAM 01/27/19 [History] Ferrous Sulfate [Iron] 325 mg PO DAILY 02/24/19 [History] Allergy/AdvReac Type Severity Reaction Status Date / Time No Known Allergies Allergy Verified 05/22/19 10:41 All Systems: The remainder of the systems were reviewed and are negative Physical Examination General appearance: no acute distress Eyes: nonicteric ENT: oropharynx moist Neck: supple Effort: normal Cardiovascular: regular rate and rhythm Gastrointestinal: normoactive bowel sounds Integumentary: normal Extremities: no cyanosis, no edema, no clubbing Musculoskeletal: no deformities normal mental status, non-focal exam mood appropriate Results - Laboratory Findings CBC and BMP: 05/23/19 04:54 05/23/19 04:54 PT/INR, D-dimer PT 15.7 Seconds (9.4-12.1) H 05/23/19 04:54 Abnormal lab findings: Abnormal lab results WBC 21.9 K/mcL (4.3-11.1) H 05/23/19 04:54 RBC 3.33 M/mcL (3.82-4.97) L 05/23/19 04:54 Hgb 8.8 g/dL (11.5-15.4) L 05/23/19 04:54 Hct 28.8 % (35.3-44.9) L 05/23/19 04:54 MCH 26.4 pg (28.0-33.3) L 05/23/19 04:54 MCHC 30.6 g/dL (31.6-35.5) L 05/23/19 04:54 RDW 20.0 % (11.5-14.5) H 05/23/19 04:54 Plt Count 561 K/mcL (140-400) H 05/23/19 04:54 MPV 9.2 fL (9.4-12.4) L 05/23/19 04:54 Neutrophils # 17.6 K/mcL (1.6-8.9) H 05/23/19 04:54 Monocytes # 1.9 K/mcL (0.0-1.3) H 05/23/19 04:54 PT 15.7 Seconds (9.4-12.1) H 05/23/19 04:54 Sodium 134 mEq/L (136-145) L 05/23/19 04:54 Chloride 96 mEq/L (98-107) L 05/22/19 11:08 Glucose 116 mg/dL (70-105) H 05/23/19 04:54 Hemoglobin A1c 6.0 % (-5.6) H 05/23/19 04:54 Calculated Osmolality 278 (280-300) L 05/23/19 04:54 ALT 58 Units/L (7-52) H 05/22/19 12:02 Alkaline Phosphatase 140 Units/L (34-104) H 05/22/19 12:02 Troponin I 0.29 ng/mL (< 0.04) H* 05/22/19 11:08 B-Natriuretic Peptide 110 pg/mL (Less than 100) H 05/22/19 11:08 Albumin 2.9 g/dL (3.5-5.7) L 05/22/19 12:02 Globulin 4.3 g/dL (2.4-3.5) H 05/22/19 12:02 Albumin/Globulin Ratio 0.7 (1.1-2.2) L 05/22/19 12:02 HDL Cholesterol 27 mg/dL (40-59) L 05/23/19 04:54 Ur Specimen Adequacy See below A 05/22/19 12:00 Ur Leukocyte Esterase Moderate (Negative) H 05/22/19 12:00 Urine Microscopic RBC 5-15 per hpf (0-3) H 05/22/19 12:00 Urine Microscopic WBC 15-30 per hpf (0-3) H 05/22/19 12:00 Ur Squamous Epith Cells Many per lpf (None-Few) H 05/22/19 12:00 Ur Culture Indicated? YES (NO) A 05/22/19 12:00 - Microbiology Findings Microbiology Findings: Microbiology, Last 48 Hours 05/22/19 12:00 Urine Culture - Preliminary Urine,Clean Catch Culture is incubating. 05/22/19 12:02 Blood Culture - Preliminary Peripheral Venipuncture Culture is incubating and being continuously monitored for growth. Final report to follow. 05/22/19 12:02 Blood Culture - Preliminary Peripheral Venipuncture Culture is incubating and being continuously monitored for growth. Final report to follow. - Diagnostic Findings CT scan - chest: report reviewed, image reviewed - Clinical Findings Intake & Output: Intake & Output 05/22/19 05/22/19 05/23/19 15:59 23:59 07:59 Intake Total 260 / 260 0 / 0 Output Total 0 / 0 Balance 260 / 260 0 / 0 Weight 58.967 kg Consult Discharge Plan - Plan Referrals: Ashutosh Burton DO [Primary Care Provider] -
[2019-05-23 08:04] LABS: % Iron Saturation 16 % (15-50); Iron 20 mcg/dL (50-170); Transferrin 90 mg/dL (203-362)
[2019-05-23 08:24] LABS: Ferritin > 1500 ng/mL (10-120)
[2019-05-23] MEDS ORDERED: cefTRIAXone 1,000 MG in Water for inj. (sterile) 10 ML IVP SCH (09:00)
--- NOTE | 2019-05-23 09:39 | Anesthesia Evaluation PreOp ---
Date of Encounter: 05/23/19 Time of Encounter: 13:12 - Past History Planned Operation: bronch Cardiac History: GA, HTN, Cardiac Surgery, Other (coronary artery disease) Pulmonary History: Former smoker Other Medical History: Other (breast cancer, bladder cancer) Anesthesia History: No Prior Anesthetic Complications, Past Anesthesia (tubal, mastectomy, TURBT, H scope D&C,) Alcohol Use: occasionally Drug use: none Medications and Allergies Calcium Carbonate [Tums] 1,000 mg PO QID PRN 05/16/15 [History] Cholecalciferol (Vitamin D3) [Vitamin D] 200 unit PO DAILY 05/16/15 [History] Aspirin Enteric Coated [Aspirin EC] 81 mg PO DAILY 02/19/17 [History] Ascorbate Calcium [Vitamin C] 1 tab PO DAILY #30 tablet 07/08/18 [Rx] Amlodipine Besylate 5 mg PO QAM 01/27/19 [History] Ferrous Sulfate [Iron] 325 mg PO DAILY 02/24/19 [History] Allergy/AdvReac Type Severity Reaction Status Date / Time No Known Allergies Allergy Verified 05/22/19 10:41 - Meds/Allergy Pre-op Review Medications Reviewed: Yes Allergies Reviewed: Yes Beta Blockers on Current Med List: No Anesthesia Results - Labs 05/23/19 04:54 05/23/19 04:54 Laboratory Tests 05/22/19 05/23/19 05/23/19 22:26 04:54 04:54 Hgb 8.8 L Hct 28.8 L Plt Count 561 H PT 15.7 H Sodium Potassium Hemoglobin A1c Troponin I < 0.03 05/23/19 05/23/19 04:54 04:54 Hgb Hct Plt Count PT Sodium 134 L Potassium 4.0 Hemoglobin A1c 6.0 H Troponin I - Imaging Additional studies: cardiac echo EF 65% normal wall motion Anesthesia Exam Vital Signs/O2 Sat, Most Current Temp Pulse Resp BP Pulse Ox 98.5 F 91 15 121/69 94 05/23/19 07:07 05/23/19 07:07 05/23/19 07:07 05/23/19 07:07 05/23/19 07:07 - HEENT Pupil (Motor): Pupils equal, EOMI Mallampati: II Oral Opening: Greater than 3 - CAST SHELL GRINDER LOC: Oriented CAST SHELL GRINDER Motor: Normal RUE, Normal LUE, Normal RLE, Normal LLE, Normal Face CAST SHELL GRINDER Sensory: Normal: RUE, LUE, RLE, LLE, Face - Cardiac Rhythm: Regular Murmur: None JVD: No - Pulmonary Breath Sounds: bilateral Clear Respiratory Effort: Symmetrical Anesthesia Assess/Plan ASA Score: 4 Level of consciousness: Cooperative, Oriented Monitoring Plan: Standard Monitors Recovery Plan: PACU
[2019-05-23] MEDS: Azithromycin 500 MG in 0.9 % Sodium Chloride 250 ML IVPB SCH ×2 (09:44→12:23)
[2019-05-23] MEDS: Aspirin Enteric Coated 81 MG Tablet PO SCH (09:45)
[2019-05-23] MEDS: amLODIPine 5 MG TABLET PO SCH (09:46)
--- NOTE | 2019-05-23 11:48 | Internal Med Progress Note ---
Hospitalist Progress Note - Encounter Date of Encounter: 05/23/19 Time of Encounter: 09:45 - Subjective Interval History: Dyspnea appears to be much better today. No fever overnight. Although pt wants to go home as soon as possible, both the pt and her agreed that they aren't sure whether she can be properly cared for by her alone. - Exam Vitals: Temp Pulse Resp BP Pulse Ox 98.5 F 91 15 121/69 94 05/23/19 07:07 05/23/19 07:07 05/23/19 07:07 05/23/19 07:07 05/23/19 07:07 Exam: General: Alert and oriented, not in distress Cardiovascular:Normal S1 & S2, No JVD. Pulse regular. Lungs: Diminished on the right, mostly clear to auscultation on the right. No wheezes Abdomen:Soft, non-tender, no rigidity. Extremities:No deformity or swelling Neurological:Normal cognition and motor skills. Non-focal - Assessment and Plan (1) Lung mass Current Visit: Yes Status: Acute Assessment and Plan: Was sent from cancer center due to dyspnea and was found to have large right lower lobe mass as well as 2 more mass lesions in the left lung. Patient has history of breast cancer requiring double mastectomy as well as bladder cancer that is currently in remission Remote history of light tobacco use, quit >35 years ago had staging scan done which showed metastatic disease in liver, right adrenal gland, and potentially a left cerebellar lesion as well as osseous lesion in clivus and C-spine discussed with oncology and pulmonology -> will plan for outpatient CT-guided bx of the adrenal lesion 6 min walk test (2) Postobstructive pneumonia Current Visit: Yes Status: Ruled-out Assessment and Plan: no significant cough or sputum production reported leukocytosis also appears to have been present at least since 06/2018 procalcitonin was checked today, normal discussed with pulmonology, will stop abx (3) Thickened endometrium Current Visit: Yes Status: Chronic Assessment and Plan: Incidental finding on staging CT scan For outpatient gynecology follow-up (4) Elevated troponin Current Visit: Yes Status: Acute Assessment and Plan: Likely due to demand ischemia in the setting of respiratory distress. It subsequently normalized and echocardiogram showed preserved EF EKG also without ischemic changes resume home meds for CAD (5) History of breast cancer Current Visit: Yes Status: Acute (6) Goals of care, counseling/discussion Current Visit: Yes Status: Acute Assessment and Plan: [id number] (7) DVT prophylaxis Current Visit: Yes Status: Acute Assessment and Plan: Subcutaneous heparin - Time Spent with Patient Total time spent is greater than 50% in coordination of care (as documented) at patient's floor/unit and/or counseling patient: 25 - 35 minutes Plan of Care Discussed with: patient (Discussed with regarding the plan of care including disposition) Internal Medicine: Result - Labs CBC & Chem 7: 05/23/19 04:54 05/23/19 04:54 Labs: Short CBC 05/23/19 Range/Units 04:54 WBC 21.9 H (4.3-11.1) K/mcL Hgb 8.8 L (11.5-15.4) g/dL Hct 28.8 L (35.3-44.9) % Plt Count 561 H (140-400) K/mcL Neutrophils # 17.6 H (1.6-8.9) K/mcL BMP 05/22/19 05/23/19 11:08 04:54 Sodium 129 L 134 L Potassium 4.1 4.0 Chloride 96 L 99 Carbon Dioxide 25 26 BUN 11 9 Creatinine 0.70 0.66 Glucose 256 H 116 H Calcium 9.9 10.1 Cardiac Enzymes 05/22/19 05/22/19 05/22/19 Range/Units 11:08 17:41 22:26 Troponin I 0.29 H* 0.03 < 0.03 (< 0.04) ng/mL Liver Function 05/22/19 Range/Units 12:02 Total Bilirubin 0.3 (0.3-1.0) mg/dL Direct Bilirubin 0.2 (0.0-0.2) mg/dL AST 38 (13-39) Units/L ALT 58 H (7-52) Units/L Alkaline Phosphatase 140 H (34-104) Units/L Albumin 2.9 L (3.5-5.7) g/dL Urine 05/22/19 Range/Units 12:00 Urine Color Yellow (Yellow) Urine Clarity Slightly Hazy (Clear) Urine pH 5.0 (5.0-8.0) pH Units Ur Specific [place] 1.017 (1.010-1.025) Urine Protein Negative (Neg-Trace) mg/dL Urine Glucose (UA) Normal (Normal) mg/dL - ABG Interpretation ABG results: PT/INR, D-dimer PT 15.7 Seconds (9.4-12.1) H 05/23/19 04:54 - Impressions Impressions Chest CTA 05/22/19 11:31 IMPRESSION: 1. No discrete pulmonary embolism. 2. Dominant right lower lobe mass with consolidation and infiltration into the right hilum and bronchi to the right lower lobe and right middle lobe presumably reflecting primary bronchogenic carcinoma. 3. 2 mass lesions in the left lung as described may reflect metastasis or synchronous lesions. 4. Right adrenal mass almost certainly reflects metastatic disease. 5. Small volume right pleural effusion is likely malignant. 6. Hiatal hernia. D/ / Jarrod Shepherd / Jarrod Shepherd Interpreting Provider: Jarrod Shepherd Echocardiogram 05/22/19 14:55 Impressions: LVEF 65%. Normal LV chamber size, wall thickness and function. Mild left ventricular diastolic dysfunction. Normal right ventricular structure and function. No evidence of pulmonary hypertension. No significant valvular dysfunction. Left Ventricular Wall Motion: Rest Echo Findings All wall segments showed normal motion. Findings: Study Quality * Technically adequate exam. ECG Findings * Normal sinus rhythm. Left Ventricle * LVEF 65%. * Normal LV chamber size, wall thickness and function. * Mild left ventricular diastolic dysfunction. Right Ventricle * Normal right ventricular structure and function. Left Atrium * Mildly dilated left atrium. Right Atrium * Normal right atrial size. Interatrial Septum * Interatrial septum not well evaluated. Aortic Valve * Trileaflet aortic valve. * Focally calcified noncoronary cusp. * No aortic regurgitation. * No aortic stenosis. Mitral Valve * Mildly calcified anterior mitral valve leaflet. * Trace mitral regurgitation. * No mitral stenosis. Tricuspid Valve * Normal tricuspid valve structure and function. * Trace tricuspid regurgitation. * No evidence of pulmonary hypertension. Pulmonic Valve * Normal pulmonic valve structure and function. * No pulmonic regurgitation. Aorta * Normally sized aortic root. Pericardium * The pericardium appears normal. IVC * Normal IVC dimensions and inspiratory collapse. Pulmonary Artery * Normal visualized portions of the main pulmonary artery. Abdomen/Pelvis CT 05/22/19 16:52 IMPRESSION: Evidence of metastatic disease within the liver and right adrenal gland. There is borderline enlargement of a portacaval lymph node, which also could potentially reflect metastatic disease. There is suspicious thickening of the endometrium, measuring up to 1.5 cm. Although that could represent endometrial hyperplasia, the primary differential consideration is endometrial carcinoma. Gynecologic consultation and endometrial sampling is recommended. Large amount of stool within the rectum. Correlate with clinical evidence of rectal impaction. D/ / Michael Arechiga MD / Michael Arechiga MD Interpreting Provider: Michael Arechiga MD Brain MRI 05/22/19 16:52 IMPRESSION: Small 4 mm area of enhancement within left cerebellum, with small amount of edema. Solitary metastatic disease is a differential consideration. Diffusely T1 hypointense marrow signal within the clivus and cervical spine. This may represent marrow involving or marrow replacing processes. Given history of primary malignancy, possibility of osseous metastasis should be excluded with bone scan. No acute infarct, intracranial hemorrhage, or significant mass effect. Moderate amount of chronic small vessel ischemic white matter disease and diffuse cerebral volume loss. D/ / 05/22/2019 18:44:32 Kaiser Serna MD / ellis Interpreting Provider: Kaiser Serna MD Soft Tissue Neck CT 05/22/19 16:52 IMPRESSION: No acute abnormality of the soft tissue structures of the neck. Neoplastic disease in the chest (please see recent chest CT). D/ / Horace Crowder MD / Horace Crowder MD Interpreting Provider: Horace Crowder MD Consult Discharge Plan - Plan Referrals: Ashutosh Burton DO [Primary Care Provider] -
[2019-05-23] MEDS: Ringers Solution, Lactated 1,000 ML IVC SCH (12:21)
[2019-05-23] MEDS ORDERED: GI Cocktail 40 ML EACH PO ONE (17:28)
[2019-05-23] MEDS: predniSONE 20 MG TABLET PO SCH (18:33)
[2019-05-23] MEDS: *HR* Heparin 5,000 UNIT/ML VIAL SQ SCH (18:33)
[2019-05-23] MEDS: Famotidine 20 MG TABLET PO SCH (20:53)
--- NOTE | 2019-05-24 00:29 | Electrocardiograph Report ---
[employer] [facility] Test Date: 2019-05-22 Pat Name: Amy Guillermo Department: [id number] Room: 3A23 Gender: F Robot Programmer: : 1940 Requested By: Jane See Order Number: [id number] Reading MD: Jay Schneider Measurements Intervals [place] Rate: 87 P: 71 MI: 154 QRS: 42 QRSD: 94 T: 58 QT: 364 QTc: 438 Interpretive Statements Sinus rhythm Minimal ST elevation, anterior leads Electronically Signed On 05-24-2019 0:28:05 EDT by Jay Schneider
[2019-05-24] MEDS: predniSONE 20 MG TABLET PO SCH (05:07)
[2019-05-24] MEDS: *HR* Heparin 5,000 UNIT/ML VIAL SQ SCH (05:07)
[2019-05-24] MEDS: Aspirin Enteric Coated 81 MG Tablet PO SCH (08:35)
[2019-05-24] MEDS: Famotidine 20 MG TABLET PO SCH (08:35)
[2019-05-24] MEDS: amLODIPine 5 MG TABLET PO SCH (08:35)
[2019-05-24] MEDS: Ringers Solution, Lactated 1,000 ML IVC SCH (08:36)
--- NOTE | 2019-05-24 11:00 | Discharge Summary ---
- NOTES TO OUTPATIENT PROVIDER Notes to Outpatient Provider: Follow up with Oncology and Pulmonology to schedule for CT-guided biopsy of right adrenal gland. Follow-up with gynecology for endometrial thickening Orders not resulted at time of discharge: Pending orders 05/22/19 12:02 Culture,Blood [BC] Stat 05/22/19 17:16 [place] Lambda Qnt FLC w Ratio Routine 05/22/19 17:41 Haptoglobin Routine Immunoglobulins IgG IgA IgM Routine Date of Encounter: 05/24/19 Time of Encounter: 09:00 - Discharge Diagnosis (1) Lung mass Priority: Primary Status: Acute (2) Postobstructive pneumonia Priority: Secondary Status: Ruled-out (3) Thickened endometrium Priority: Secondary Status: Chronic (4) Elevated troponin Priority: Secondary Status: Acute (5) History of breast cancer Priority: Secondary Status: Acute (6) Goals of care, counseling/discussion Priority: Secondary Status: Acute (7) DVT prophylaxis Priority: Secondary Status: Acute Hospital course: Ms. Guillermo is a 79 year old female with history of breast cancer, bladder cancer, CAD s/p PCI, who was admitted from cancer center due to SOB. She was found to have dominant right lower lobe mass with consolidation and infiltration into the right hilum and bronchi to the right lower lobe and right middle lobe, concerning for primary bronchogenic carcinoma. However, pt did not require any O2 at rest or on ambulation. Managed in consultation with pulmonology and oncology and after the staging scan (which showed R adrenal metastases, multiple liver mets, and 4mm area of enhancement in L cerebellum), the decision was made to proceed with CT-guided biopsy of right adrenal mass rather than by EBUS. She was seen by the therapists prior to discharge who recommended for home health and it will be setup through the medical social worker at [facility] where they reside. She was given a short course of steroids as recommended by oncology. Of note, she was also noted to have endometrial thickening for which she willl need to follow up with Gynecology as outpatient Discharge discussed with: patient, nurse, case management, senior billing consultant - Time Spent with Patient Total time spent providing and/or coordinating discharge services: 35 mins - Discharge Medications Prescriptions: New predniSONE [PredniSONE] 40 mg PO DAILY 5 Days #10 tablet Continued Calcium Carbonate [Tums] 1,000 mg PO QID PRN PRN Reason: Heartburn Aspirin Enteric Coated [Aspirin EC] 81 mg PO DAILY Amlodipine Besylate 5 mg PO QAM Ferrous Sulfate [Iron] 325 mg PO DAILY Ascorbate Calcium [Vitamin C] 500 mg PO DAILY Atorvastatin [Lipitor] 40 mg PO HS Cholecalciferol (Vitamin D3) [Vitamin D3] 1,000 units PO DAILY Mv,Calcium,Min/Iron/Folic/Vitk [Multi For Her Tablet] 1 tab PO DAILY raNITIdine HCl [Ranitidine HCl] 150 mg PO BID Home Medications: Calcium Carbonate [Tums] 1,000 mg PO QID PRN 05/16/15 [History] Aspirin Enteric Coated [Aspirin EC] 81 mg PO DAILY 02/19/17 [History] Amlodipine Besylate 5 mg PO QAM 01/27/19 [History] Ferrous Sulfate [Iron] 325 mg PO DAILY 02/24/19 [History] Ascorbate Calcium [Vitamin C] 500 mg PO DAILY 05/23/19 [History] Atorvastatin [Lipitor] 40 mg PO HS 05/23/19 [History] Cholecalciferol (Vitamin D3) [Vitamin D3] 1,000 units PO DAILY 05/23/19 [History] Mv,Calcium,Min/Iron/Folic/Vitk [Multi For Her Tablet] 1 tab PO DAILY 05/23/19 [History] raNITIdine HCl [Ranitidine HCl] 150 mg PO BID 05/23/19 [History] predniSONE [PredniSONE] 40 mg PO DAILY 5 Days #10 tablet 05/24/19 [Rx] Allergies/Adverse Reactions: Allergy/AdvReac Type Severity Reaction Status Date / Time No Known Allergies Allergy Verified 05/23/19 14:15 Date of admission: 05/22/19 17:19 Primary care physician: Ashutosh Burton DO Consults: 05/22/19 14:42 Consult to Oncology [CONS] Stat Consulting Provider: [facility] Reason for Consult: Concern for metastatic disease with mets to R and L lung, and adrenal gland with extension into the hilum. Time Notified: 14:42 Call Completed: Yes 05/22/19 15:33 Consult to Pulmonology [CONS] Routine Consulting Provider: [facility] [place] Reason for Consult: Postobstructive pneumonia with right lower lobe mass. Hx of breast and bladder CA Call Completed: Yes 05/23/19 10:44 Consult to Occupational Therapy [CONS] Routine Comment: Evaluate, develop and implement POC Reason for Consult: physical deconditioning, multiple cancer Does patient have active BEDREST order?: No Is patient medically & hemodynamically stable?: Yes Consult to Physical Therapy [CONS] Routine Comment: Evaluate, develop and implement POC Reason for Consult: physical deconditioning, multiple cancer Does patient have active BEDREST order?: No Is patient medically & hemodynamically stable?: Yes - Constitutional Vitals: Temp Pulse Resp BP Pulse Ox 97.5 F L 104 15 138/64 98 05/24/19 06:41 05/24/19 06:41 05/24/19 06:41 05/24/19 06:41 05/24/19 06:41 Exam: General: Alert and oriented, not in distress Cardiovascular:Normal S1 & S2, No JVD. Pulse regular. Lungs: Diminished on the right, mostly clear to auscultation on the right. No wheezes Abdomen:Soft, non-tender, no rigidity. Extremities:No deformity or swelling Neurological:Normal cognition and motor skills. Non-focal - Patient Status Disposition: Home Health Service Condition: Fair Overall status at discharge: patient is progressing back to baseline - Discharge Instructions Follow Up With: Ashutosh Burton DO [Primary Care Provider] - Chavo Ortega MD [Partnered Physician] - Devyn Lew MD [Partnered Physician] - Additional Instructions: Follow up with Gynecology as outpatient - Diet and Activity Activity: as per physical therapy Diet: regular diet
--- NOTE | 2019-05-24 11:10 | Physician Discharge Referral ---
Home Health/Hosp Referral Info Transfer to: Home Health Provider in Charge Post Discharge: PCP - Diagnosis (1) Lung mass Priority: Primary Status: Acute (2) Postobstructive pneumonia Priority: Secondary Status: Ruled-out (3) Thickened endometrium Priority: Secondary Status: Chronic (4) Elevated troponin Priority: Secondary Status: Acute (5) History of breast cancer Priority: Secondary Status: Acute (6) Goals of care, counseling/discussion Priority: Secondary Status: Acute (7) DVT prophylaxis Priority: Secondary Status: Acute - Respiratory Orders Smoking Cessation: Smoking cessation has been advised. For more information, call the [place] Tobacco Quit Line at 9-889-NCHE-NOW. - Diet/Nutrition Diet/Nutrition Orders: Regular - Services Needed Following services are medically necessary services: Nursing, Home Health Aide, Physical Therapy, Occupational Therapy - Transfer Medications Prescriptions: Polyethylene Glycol 3350 [MiraLAX] 17 gm PO DAILY PRN #30 powd.pack PRN Reason: Constipation predniSONE [PredniSONE] 40 mg PO DAILY 5 Days #10 tablet Home Medications: Calcium Carbonate [Tums] 1,000 mg PO QID PRN 05/16/15 [History] Aspirin Enteric Coated [Aspirin EC] 81 mg PO DAILY 02/19/17 [History] Amlodipine Besylate 5 mg PO QAM 01/27/19 [History] Ferrous Sulfate [Iron] 325 mg PO DAILY 02/24/19 [History] Ascorbate Calcium [Vitamin C] 500 mg PO DAILY 05/23/19 [History] Atorvastatin [Lipitor] 40 mg PO HS 05/23/19 [History] Cholecalciferol (Vitamin D3) [Vitamin D3] 1,000 units PO DAILY 05/23/19 [History] Mv,Calcium,Min/Iron/Folic/Vitk [Multi For Her Tablet] 1 tab PO DAILY 05/23/19 [History] raNITIdine HCl [Ranitidine HCl] 150 mg PO BID 05/23/19 [History] Polyethylene Glycol 3350 [MiraLAX] 17 gm PO DAILY PRN #30 powd.pack 05/24/19 [Rx] predniSONE [PredniSONE] 40 mg PO DAILY 5 Days #10 tablet 05/24/19 [Rx] Allergies/Adverse Reactions: Allergy/AdvReac Type Severity Reaction Status Date / Time No Known Allergies Allergy Verified 05/23/19 14:15 Certification: Further, I certify that my clinical findings support that this patient is homebound (i.e. absences from home require considerable and taxing effort and are for medical reasons or latter-day services or infrequently or short duration when for other reasons) because: Homebound Reason: Patient requires assistance of a person or device to safely leave home Attestation: My signature below is to certify that this patient is under my care and that I, or nurse practitioner, or a physician's doctor assistant working with me, has a [id number] encounter with this patient.
[2019-05-24 11:12] VITALS: BP 129/73
[2019-05-25 20:01] LABS: Kappa Qnt Free Light Chains 4.44 mg/dL (0.33-1.94); Lambda Qnt Free Light Chains 2.86 mg/dL (0.57-2.63)
[2019-05-26 09:42] LABS: Immunoglobulin A 366 mg/dL (68-408); Immunoglobulin G 1440 mg/dL (768-1632); Immunoglobulin M 64 mg/dL (35-263)
[2019-05-27 00:18] LABS: Alpha 2 Globulin (PEP) 1.62 g/dL (0.48-1.05); Beta Globulin (PEP) 0.75 g/dL (0.48-1.10)
[2019-05-27 09:39] LABS: Immunoglobulin A 373 mg/dL (68-408); Immunoglobulin G 1420 mg/dL (768-1632); Immunoglobulin M 64 mg/dL (35-263)
[2019-05-27 09:45] LABS: IFE Reflexed IFE Done
--- NOTE | 2019-05-27 10:44 | Electrocardiograph Report ---
[address] [id number] Test Date: 2019-05-22 Pat Name: Amy Guillermo Department: [id number] Room: 3A23 Gender: Bee Producer: : [id number] Requested By: Dakota Mccartney Order Number: [id number] Reading MD: Omar Rodgers Measurements Intervals [place] Rate: 92 P: 62 RI: 153 QRS: 65 QRSD: 87 T: 69 QT: 339 QTc: 389 Interpretive Statements SINUS RHYTHM Electronically Signed On 05-27-2019 10:42:48 EDT by Omar Rodgers
== END 2019-05-24 12:30 | disposition home health service (06) ==
LOC: 3ANU 10:39 → EMEROOARM 10:39 → SUATTDRO 17:19 → 3ANU 18:34
PROVIDERS: ADMIT Internal Medicine; ATTEND Internal Medicine

== ENCOUNTER 2019-09-21 15:02 | Inpatient (IN) ==
[2019-09-21] MEDS ORDERED: 0.9 % Sodium Chloride 1,000 ML IVC ONE (15:14)
[2019-09-21] MEDS ORDERED: *HR* HYDROmorphone (PF) 1 MG/ML SYRINGE IVP ONE (15:16)
[2019-09-21] MEDS ORDERED: Isovue-370 500 ML BOTTLE IVP ONE (15:19)
[2019-09-21 16:25] LABS: Albumin 3.3 g/dL (3.5-5.7); Bilirubin,Direct 0.1 mg/dL (0.0-0.2); Bilirubin,Indirect 0.3 mg/dL (0.0-1.0); Bilirubin,Total 0.4 mg/dL (0.3-1.0); Globulin 3.3 g/dL (2.4-3.5); Total Protein 6.6 g/dL (6.4-8.9)
[2019-09-21 16:26] LABS: BUN/Creatinine Ratio 22 (6-26); Blood Urea Nitrogen 16 mg/dL (8-23); Calcium 11.1 mg/dL (8.6-10.3); Carbon Dioxide 27 mEq/L (23-29); Chloride 95 mEq/L (98-107); Glucose 170 mg/dL (70-105); Osmolality,Calculated 287 (280-300); Potassium 3.3 mEq/L (3.5-5.1); Sodium 136 mEq/L (136-145); eGFR For African Americans > 60 (> 60); eGFR For Non-African Americans > 60 (> 60)
[2019-09-21 16:27] LABS: Hematocrit 29.7 % (35.3-44.9); Hemoglobin 9.6 g/dL (11.5-15.4); Mean Corpuscular HGB Conc 32.3 g/dL (31.6-35.5); Mean Corpuscular Hemoglobin 30.5 pg (28.0-33.3); Mean Corpuscular Volume 94.3 fL (83.0-100.0); Mean Platelet Volume 9.5 fL (9.4-12.4); Platelet Count 367 K/mcL (140-400); Red Blood Count 3.15 M/mcL (3.82-4.97); Red Cell Distribution Width 17.2 % (11.5-14.5); White Blood Count 19.5 K/mcL (4.3-11.1)
[2019-09-21] MEDS ORDERED: Naloxone 0.4 MG/ML INJ IVP PRN (22:32)
[2019-09-21] MEDS: 0.9 % Sodium Chloride 1,000 ML IVC SCH (23:35)
[2019-09-22] MEDS: *HR* Heparin 5,000 UNIT/ML VIAL SQ SCH ×2 (04:57→19:42)
[2019-09-22 05:02] LABS: Bilirubin,Urine Negative (Negative); Blood,Urine Negative (Negative); Clarity,Urine Clear (Clear); Color,Urine Yellow (Yellow); Glucose,Urine (UA) Normal (Normal); Ketones,Urine Negative (Negative); Leukocyte Esterase,Urine Negative (Negative); Nitrite,Urine Negative (Negative); Protein,Urine Negative (Neg-Trace); Specific Gravity,Urine > 1.030 (1.010-1.025); Urobilinogen,Urine Normal (Normal)
[2019-09-22 05:09] LABS: Mean Corpuscular HGB Conc 31.7 g/dL (31.6-35.5); Mean Corpuscular Hemoglobin 31.3 pg (28.0-33.3); Mean Corpuscular Volume 98.8 fL (83.0-100.0); Mean Platelet Volume 9.2 fL (9.4-12.4); Platelet Count 303 K/mcL (140-400); Red Blood Count 2.43 M/mcL (3.82-4.97); Red Cell Distribution Width 17.1 % (11.5-14.5); White Blood Count 15.9 K/mcL (4.3-11.1)
[2019-09-22 05:10] LABS: Hemoglobin 7.6 g/dL (11.5-15.4)
[2019-09-22 05:28] LABS: BUN/Creatinine Ratio 20 (6-26); Blood Urea Nitrogen 13 mg/dL (8-23); Calcium 9.5 mg/dL (8.6-10.3); Carbon Dioxide 29 mEq/L (23-29); Chloride 102 mEq/L (98-107); Glucose 126 mg/dL (70-105); Osmolality,Calculated 284 (280-300); Potassium 3.3 mEq/L (3.5-5.1); Sodium 136 mEq/L (136-145); eGFR For African Americans > 60 (> 60); eGFR For Non-African Americans > 60 (> 60)
[2019-09-22] MEDS ORDERED: predniSONE 20 MG TABLET PO SCH (09:00)
[2019-09-22] MEDS: 0.9 % Sodium Chloride 1,000 ML IVC SCH (09:07)
[2019-09-22] MEDS: Aspirin Enteric Coated 81 MG Tablet PO SCH (09:08)
[2019-09-22] MEDS: Pantoprazole 40 MG VIAL IVP SCH (15:03)
[2019-09-22] MEDS: Ketorolac 15 MG/ML VIAL IVP PRN (21:53)
[2019-09-23] MEDS: *HR* Heparin 5,000 UNIT/ML VIAL SQ SCH ×2 (05:44→18:21)
[2019-09-23] MEDS: Pantoprazole 40 MG VIAL IVP SCH (08:10)
[2019-09-23] MEDS: Ketorolac 15 MG/ML VIAL IVP PRN ×2 (08:10→15:08)
[2019-09-23] MEDS: Aspirin Enteric Coated 81 MG Tablet PO SCH (08:10)
[2019-09-23 09:42] LABS: Hematocrit 27.3 % (35.3-44.9); Hemoglobin 8.9 g/dL (11.5-15.4); Mean Corpuscular HGB Conc 32.6 g/dL (31.6-35.5); Mean Corpuscular Volume 95.1 fL (83.0-100.0); Mean Platelet Volume 8.6 fL (9.4-12.4); Platelet Count 378 K/mcL (140-400); Red Blood Count 2.87 M/mcL (3.82-4.97); Red Cell Distribution Width 16.9 % (11.5-14.5); White Blood Count 17.6 K/mcL (4.3-11.1)
[2019-09-23 10:01] LABS: BUN/Creatinine Ratio 17 (6-26); Blood Urea Nitrogen 12 mg/dL (8-23); Calcium 9.9 mg/dL (8.6-10.3); Carbon Dioxide 27 mEq/L (23-29); Chloride 98 mEq/L (98-107); Glucose 128 mg/dL (70-105); Osmolality,Calculated 281 (280-300); Potassium 3.2 mEq/L (3.5-5.1); Sodium 135 mEq/L (136-145); eGFR For African Americans > 60 (> 60); eGFR For Non-African Americans > 60 (> 60)
[2019-09-23] MEDS: *HR* OxyCODONE Immed Rel 5 MG TABLET PO PRN (20:12)
[2019-09-24] MEDS ORDERED: Levalbuterol Neb 1.25 MG/3 ML ONE (00:10)
[2019-09-24] MEDS: Levalbuterol Neb 1.25 MG/3 ML IH SCH ×5 (00:15→21:18)
[2019-09-24] MEDS: *HR* OxyCODONE Immed Rel 5 MG TABLET PO PRN ×3 (04:32→13:02)
[2019-09-24] MEDS: *HR* Heparin 5,000 UNIT/ML VIAL SQ SCH ×2 (04:57→18:08)
[2019-09-24] MEDS: Ascorbic Acid 500 MG TABLET PO SCH (08:37)
[2019-09-24] MEDS: Aspirin Enteric Coated 81 MG Tablet PO SCH (08:38)
[2019-09-24] MEDS: amLODIPine 5 MG TABLET PO SCH (08:38)
[2019-09-24] MEDS: predniSONE 20 MG TABLET PO SCH (08:38)
[2019-09-24] MEDS: Cholecalciferol (D-3) 1,000 UNIT (25MCG) TABLET PO SCH (08:38)
[2019-09-25] MEDS: Levalbuterol Neb 1.25 MG/3 ML IH SCH ×4 (04:02→21:25)
[2019-09-25] MEDS: *HR* Heparin 5,000 UNIT/ML VIAL SQ SCH (06:24)
[2019-09-25] MEDS: *HR* OxyCODONE Immed Rel 5 MG TABLET PO PRN ×2 (09:23→15:07)
[2019-09-25] MEDS: Cholecalciferol (D-3) 1,000 UNIT (25MCG) TABLET PO SCH (09:23)
[2019-09-25] MEDS: predniSONE 20 MG TABLET PO SCH (09:23)
[2019-09-25] MEDS: amLODIPine 5 MG TABLET PO SCH (09:23)
[2019-09-25] MEDS: Aspirin Enteric Coated 81 MG Tablet PO SCH (09:23)
[2019-09-25] MEDS: Ascorbic Acid 500 MG TABLET PO SCH (09:23)
[2019-09-25 11:52] LABS: INR 1.1; Prothrombin Time 12.8 Seconds (9.4-12.1)
[2019-09-25] MEDS ORDERED: Furosemide 20 MG/2 ML VIAL IVP ONE (15:15)
[2019-09-26] MEDS: *HR* OxyCODONE Immed Rel 5 MG TABLET PO PRN ×2 (03:40→10:34)
[2019-09-26] MEDS: Levalbuterol Neb 1.25 MG/3 ML IH SCH ×4 (04:46→22:59)
[2019-09-26] MEDS: Cholecalciferol (D-3) 1,000 UNIT (25MCG) TABLET PO SCH (08:38)
[2019-09-26] MEDS: predniSONE 20 MG TABLET PO SCH (08:38)
[2019-09-26] MEDS: Aspirin Enteric Coated 81 MG Tablet PO SCH (08:38)
[2019-09-26] MEDS: amLODIPine 5 MG TABLET PO SCH (08:38)
[2019-09-26] MEDS: Ascorbic Acid 500 MG TABLET PO SCH (08:38)
[2019-09-26] MEDS ORDERED: Furosemide 20 MG/2 ML VIAL IVP ONE (08:55)
[2019-09-26 09:46] LABS: Hematocrit 27.1 % (35.3-44.9); Hemoglobin 8.5 g/dL (11.5-15.4); Mean Corpuscular HGB Conc 31.4 g/dL (31.6-35.5); Mean Corpuscular Hemoglobin 30.9 pg (28.0-33.3); Mean Corpuscular Volume 98.5 fL (83.0-100.0); Mean Platelet Volume 8.9 fL (9.4-12.4); Platelet Count 350 K/mcL (140-400); Red Blood Count 2.75 M/mcL (3.82-4.97); Red Cell Distribution Width 17.3 % (11.5-14.5); White Blood Count 24.4 K/mcL (4.3-11.1)
[2019-09-26 10:05] LABS: BUN/Creatinine Ratio 19 (6-26); Blood Urea Nitrogen 16 mg/dL (8-23); Calcium 10.2 mg/dL (8.6-10.3); Carbon Dioxide 26 mEq/L (23-29); Chloride 96 mEq/L (98-107); Glucose 155 mg/dL (70-105); Osmolality,Calculated 274 (280-300); Potassium 4.8 mEq/L (3.5-5.1); Sodium 130 mEq/L (136-145); eGFR For African Americans > 60 (> 60); eGFR For Non-African Americans > 60 (> 60)
[2019-09-27] MEDS: Levalbuterol Neb 1.25 MG/3 ML IH SCH ×4 (03:40→22:02)
[2019-09-27] MEDS: predniSONE 20 MG TABLET PO SCH (10:05)
[2019-09-27] MEDS: amLODIPine 5 MG TABLET PO SCH (10:05)
[2019-09-27] MEDS: Aspirin Enteric Coated 81 MG Tablet PO SCH (10:05)
[2019-09-27] MEDS: Ascorbic Acid 500 MG TABLET PO SCH (10:06)
[2019-09-27] MEDS: Cholecalciferol (D-3) 1,000 UNIT (25MCG) TABLET PO SCH (10:06)
[2019-09-27] MEDS ORDERED: levoFLOXacin 750 MG TABLET PO SCH (13:00)
[2019-09-27] MEDS: Furosemide 20 MG TABLET PO SCH (13:54)
[2019-09-27] MEDS: *HR* OxyCODONE Immed Rel 5 MG TABLET PO PRN (18:58)
[2019-09-28] MEDS: Levalbuterol Neb 1.25 MG/3 ML IH SCH ×4 (03:25→21:58)
[2019-09-28] MEDS: Furosemide 20 MG TABLET PO SCH (07:58)
[2019-09-28] MEDS: amLODIPine 5 MG TABLET PO SCH (07:58)
[2019-09-28] MEDS: Cholecalciferol (D-3) 1,000 UNIT (25MCG) TABLET PO SCH (07:58)
[2019-09-28] MEDS: Ascorbic Acid 500 MG TABLET PO SCH (07:58)
[2019-09-28] MEDS: Aspirin Enteric Coated 81 MG Tablet PO SCH (07:58)
[2019-09-28] MEDS: predniSONE 20 MG TABLET PO SCH (07:58)
[2019-09-28 08:14] LABS: Hematocrit 26.6 % (35.3-44.9); Hemoglobin 8.3 g/dL (11.5-15.4); Mean Corpuscular HGB Conc 31.2 g/dL (31.6-35.5); Mean Corpuscular Hemoglobin 30.6 pg (28.0-33.3); Mean Corpuscular Volume 98.2 fL (83.0-100.0); Platelet Count 367 K/mcL (140-400); Red Blood Count 2.71 M/mcL (3.82-4.97); Red Cell Distribution Width 17.3 % (11.5-14.5); White Blood Count 25.6 K/mcL (4.3-11.1)
[2019-09-28 08:31] LABS: BUN/Creatinine Ratio 19 (6-26); Blood Urea Nitrogen 18 mg/dL (8-23); Calcium 10.8 mg/dL (8.6-10.3); Carbon Dioxide 25 mEq/L (23-29); Chloride 96 mEq/L (98-107); Glucose 139 mg/dL (70-105); Osmolality,Calculated 280 (280-300); Potassium 4.4 mEq/L (3.5-5.1); Sodium 133 mEq/L (136-145); eGFR For African Americans > 60 (> 60); eGFR For Non-African Americans 58 (> 60)
[2019-09-28] MEDS ORDERED: 0.9 % Sodium Chloride 500 ML IVC ONE (10:03)
[2019-09-28] MEDS ORDERED: Zoledronic Acid (Zometa) 4 MG in 0.9 % Sodium Chloride 100 ML IV ONE (10:03)
[2019-09-28 10:53] LABS: Albumin/Globulin Ratio 0.9 (1.1-2.2); Bilirubin,Direct 0.1 mg/dL (0.0-0.2); Bilirubin,Indirect 0.4 mg/dL (0.0-1.0); Bilirubin,Total 0.5 mg/dL (0.3-1.0); Globulin 3.3 g/dL (2.4-3.5); Total Protein 6.3 g/dL (6.4-8.9)
[2019-09-28] MEDS: Cefepime HCl 2,000 MG in 0.9 % Sodium Chloride Mini Bag 100 ML IVPB SCH (12:10)
[2019-09-28] MEDS ORDERED: Aminoglycoside Consult 1 EACH MC ONE (13:34)
[2019-09-28 16:58] LABS: BUN/Creatinine Ratio 22 (6-26); Blood Urea Nitrogen 21 mg/dL (8-23); Calcium 9.7 mg/dL (8.6-10.3); Carbon Dioxide 25 mEq/L (23-29); Chloride 97 mEq/L (98-107); Glucose 262 mg/dL (70-105); Osmolality,Calculated 286 (280-300); Potassium 4.4 mEq/L (3.5-5.1); Sodium 132 mEq/L (136-145); eGFR For African Americans > 60 (> 60); eGFR For Non-African Americans 55 (> 60)
[2019-09-28 20:47] LABS: Bilirubin,Urine Negative (Negative); Blood,Urine Negative (Negative); Clarity,Urine Clear (Clear); Color,Urine Yellow (Yellow); Glucose,Urine (UA) Normal (Normal); Ketones,Urine Negative (Negative); Leukocyte Esterase,Urine Negative (Negative); Nitrite,Urine Negative (Negative); Protein,Urine Negative (Neg-Trace); Specific Gravity,Urine 1.013 (1.010-1.025); Urobilinogen,Urine Normal (Normal)
[2019-09-29] MEDS: Levalbuterol Neb 1.25 MG/3 ML IH SCH ×2 (03:21→10:27)
[2019-09-29] MEDS: Cefepime HCl 2,000 MG in 0.9 % Sodium Chloride Mini Bag 100 ML IVPB SCH ×2 (03:55→11:36)
[2019-09-29 05:30] LABS: Hematocrit 22.5 % (35.3-44.9); Hemoglobin 7.4 g/dL (11.5-15.4); Mean Corpuscular HGB Conc 32.9 g/dL (31.6-35.5); Mean Corpuscular Hemoglobin 31.1 pg (28.0-33.3); Mean Corpuscular Volume 94.5 fL (83.0-100.0); Mean Platelet Volume 9.2 fL (9.4-12.4); Platelet Count 310 K/mcL (140-400); Red Blood Count 2.38 M/mcL (3.82-4.97); Red Cell Distribution Width 17.7 % (11.5-14.5); White Blood Count 18.8 K/mcL (4.3-11.1)
[2019-09-29 05:43] LABS: BUN/Creatinine Ratio 20 (6-26); Blood Urea Nitrogen 17 mg/dL (8-23); Calcium 9.7 mg/dL (8.6-10.3); Carbon Dioxide 25 mEq/L (23-29); Chloride 99 mEq/L (98-107); Glucose 127 mg/dL (70-105); Osmolality,Calculated 283 (280-300); Potassium 3.5 mEq/L (3.5-5.1); Sodium 135 mEq/L (136-145); eGFR For African Americans > 60 (> 60); eGFR For Non-African Americans > 60 (> 60)
[2019-09-29] MEDS: amLODIPine 5 MG TABLET PO SCH (07:25)
[2019-09-29] MEDS: Aspirin Enteric Coated 81 MG Tablet PO SCH (07:25)
[2019-09-29] MEDS: predniSONE 20 MG TABLET PO SCH (07:25)
[2019-09-29] MEDS: Ascorbic Acid 500 MG TABLET PO SCH (07:26)
[2019-09-29] MEDS: Cholecalciferol (D-3) 1,000 UNIT (25MCG) TABLET PO SCH (07:26)
[2019-09-29 07:42] VITALS: BP 143/77
== END 2019-09-29 13:35 | DRG 551 ==
LOC: EMEROOARM 15:02 → 3ANU 15:02
PROVIDERS: ADMIT Internal Medicine; ATTEND Internal Medicine